=== PATIENT | male | born 1935 | race Caucasian/White ===

== ENCOUNTER → 2016-04-29 | Outpatient (CLI) | payer MEDICARE | LOC: MW.CHRC 07:37 | PROVIDERS: ATTEND Family Medicine | DX: I10 Essential (primary) hypertension (principal); E78.2 Mixed hyperlipidemia; E11.9 Type 2 diabetes mellitus without complications | CPT/HCPCS: 36415; 80053; 80061; 82044; 83036; 84443; 99215 ==

== ENCOUNTER → 2016-05-05 | Outpatient (CLI) | payer MEDICARE | LOC: MW.CHGS 08:00 | PROVIDERS: ATTEND Surgery | DX: D12.6 Benign neoplasm of colon, unspecified (principal); Z86.010 Personal history of colon polyps; K57.90 Diverticulosis of intestine, part unspecified, without perforation or abscess without bleeding; E11.9 Type 2 diabetes mellitus without complications | CPT/HCPCS: 99204 ==

== ENCOUNTER 2016-06-03 09:37 | Day surgery (SDC) | payer MEDICARE ==
[~2016-06-03 09:37] MED LIST: Lactated Ringers 1,000 ML IV SCH; Lidocaine 2% 5 ML SDV ONE; Propofol 200 MG/20 ML SDV ONE; Rocuronium 10 MG/ML 10 ML Syringe ONE; Succinylcholine/Normal Saline 200 MG/10 ML Syringe ONE; fentaNYL 100 MCG/2 ML SDV ONE
--- NOTE | 2016-06-03 10:08 | PCM.PREANE ---
Preanesthetic Assessment - Anesthesia/Transfusion/Family Hx Anesthesia History: Prior Anesthesia Without Reaction Family History of Anesthesia Reaction: No Transfusion History: No Prior Transfusion(s) - Review of Systems General: No Symptoms Pulmonary: No Symptoms Cardiovascular: No Symptoms Gastrointestinal: No symptoms Neurological: No Symptoms Other: Reports: None - Physical Assessment NPO Status Date: 06/02/16 O2 Sat by Pulse Oximetry: 97 Respiratory Rate: 14 Vital Signs: Last Vital Signs Temp 36.4 C 06/03/16 09:56 Pulse 81 06/03/16 09:56 Resp 14 06/03/16 09:56 BP 155/84 H 06/03/16 09:56 Pulse Ox 97 06/03/16 09:56 Height: 1.68 m Weight: 110.223 kg ASA Class: 3 Mental Status: Alert & Oriented x3 Airway Class: Mallampati = 2 Dentition: Reports: Dentures ROM/Head Extension: Full Lungs: Clear to auscultation, Normal respiratory effort Cardiovascular: Regular Rate, Regular Rhythm - Allergies Allergies/Adverse Reactions: Allergies Allergy/AdvReac Type Severity Reaction Status Date / Time No Known Allergies Allergy Verified 06/01/16 13:32 - Acknowledgements Anesthesia Type Planned: MAC Pt an Appropriate Candidate for the Planned Anesthesia: Yes Alternatives and Risks of Anesthesia Discussed w Pt/Guardian: Yes Pt/Guardian Understands and Agrees with Anesthesia Plan: Yes Additional Comments: DM 1.5 (am sugar 190), htn hld, rani,BMI39. PreAnesthesia Questionnaire Other HEENT History: wears glasses Cardiovascular History: Reports: High cholesterol Respiratory History: Reports: Asthma, Sleep apnea Other Respiratory History: uses a CPAP Gastrointestinal History: Reports: Colon polyp Genitourinary History: Reports: None Musculoskeletal History: Reports: None Neurological History: Reports: None Psychiatric History: Reports: None Endocrine/Metabolic History: Reports: Diabetes, type II, Hypothyroidism, Obesity /BMI 30+ Hematologic History: Reports: None Immunologic History: Reports: None Oncologic (Cancer) History: Reports: None Dermatologic History: Reports: None - Past Surgical History Head Surgeries/Procedures: Reports: None HEENT Surgical History: Reports: None Cardiovascular Surgical History: Reports: None Respiratory Surgical History: Reports: None GI Surgical History: Reports: Colonoscopy Male Surgical History: Reports: Circumcision, TURP-Transurethral resection of prostate Endocrine Surgical History: Reports: None Neurological Surgical History: Reports: Laminectomy Musculoskeletal Surgical History: Reports: None Oncologic Surgical History: Reports: None Dermatological Surgical History: Reports: None - SUBSTANCE USE Smoking Status *Q: Former Smoker Days Per Week of Alcohol Use: 3 Number of Drinks Per Day: 2 Total Drinks Per Week: 6 Recreational Drug Use History: No - HOME MEDS Home Medications: Home Meds Aspirin 81 mg PO DAILY 08/28/15 [History] Colesevelam [Welchol] 3 tab PO BID 08/28/15 [History] Finasteride 5 mg PO DAILY 08/28/15 [History] Gemfibrozil [Gemfibrozil] 600 mg PO BIDMEALS 08/28/15 [History] Insulin Glarg,Human.Rec.Analog [LantUS Solostar] 68 unit SQ BEDTIME 08/28/15 [ History] Insulin Lispro [HumaLOG] See Protocol SQ TID MDD 100 units 08/28/15 [History] Levothyroxine Sodium [Levothyroxine Sodium] 50 mcg PO DAILY 08/28/15 [History] Meloxicam [Meloxicam] 15 mg PO DAILY 08/28/15 [History] Ramipril [Ramipril] 5 mg PO DAILY 08/28/15 [History] atorvaSTATin Calcium [Atorvastatin Calcium] 40 mg PO DAILY 08/28/15 [History] sitaGLIPtin Phos/Metformin HCl [Janumet 50-1,000 MG] 1 each PO BID 08/28/15 [ History] Albuterol Sulfate [Proair Hfa] 2 puff INH Q4H PRN 06/01/16 [History] Fluticasone/Salmeterol [Advair Diskus 100-50] 1 puff INH BID 06/01/16 [History] - CURRENT (IN HOUSE) MEDS Current Meds: Current Medications Lactated Ringer's (Ringers, Lactated) 1,000 mls @ 125 mls/hr IV ASDIRECTED JUANI Discontinued Medications Fentanyl (Sublimaze) Confirm Administered Dose 100 mcg .ROUTE .STK-MED ONE Stop: 06/03/16 07:39 Lidocaine (Xylocaine-Mpf 2%) Confirm Administered Dose 5 ml .ROUTE .STK-MED ONE Stop: 06/03/16 07:39 Propofol (Diprivan 20 Ml) Confirm Administered Dose 400 mg .ROUTE .STK-MED ONE Stop: 06/03/16 07:39 Rocuronium [place] (Zemuron) Confirm Administered Dose 100 mg .ROUTE .STK-MED ONE Stop: 06/03/16 07:56 Succinylcholine Chloride (Succinylcholine In Ns Pf) Confirm Administered Dose 200 mg .ROUTE .STK-MED ONE Stop: 06/03/16 07:56
[2016-06-03] MEDS ORDERED: Phenylephrine/Normal Saline 100 MCG/ML 10 ML Syringe ONE (10:59)
--- NOTE | 2016-06-03 11:20 | PCM.OPNOTE ---
- General Post-Op/Procedure Note Operative Procedure(s): Colonoscopy with cold ascending colon polypectomy Pre Op Diagnosis: Personal history of colon polyps. Post-Op Diagnosis: Ascending colon polyp. Sigmoid diverticulosis. Anesthesia Technique: MAC (ASA III) Primary Surgeon: Chapo Payne Condition: Good Free Text/Narrative:: Dictation [id number]
[2016-06-03] MEDS ORDERED: Lactated Ringers 1,000 ML IV SCH (11:30)
--- NOTE | 2016-06-03 11:44 | PCM48HPAN ---
Post Anesthesia Note - EVALUATION WITHIN 48HRS OF ANESTHETIC Vital Signs in Normal Range: Yes Patient Participated in Evaluation: Yes Respiratory Function Stable: Yes Airway Patent: Yes Cardiovascular Function Stable: Yes Hydration Status Stable: Yes Pain Control Satisfactory: Yes Nausea and Vomiting Control Satisfactory: Yes Mental Status Recovered: Yes
--- NOTE | 2016-06-03 11:44 | PCM.POSTAN ---
POST ANESTHESIA ASSESSMENT - MENTAL STATUS Mental Status: alert, oriented - RESPIRATORY Respiratory Status: respiratory rate WNL, airway patent - CARDIOVASCULAR CV Status: pulse rate WNL, blood pressure stable - GASTROINTESTINAL GI Status: no symptoms - POST OP HYDRATION Hydration Status: adequate & stable
[2016-06-03 15:11] VITALS: BP 127/67
--- NOTE | 2016-06-03 17:16 | OR ---
SURGEON: Chapo Payne M.D. DATE OF PROCEDURE: 06/03/2016 OPERATION PERFORMED: Colonoscopy with cold ascending colon polypectomy. ANESTHESIA: MAC. ASA CLASSIFICATION: III. PREOPERATIVE DIAGNOSIS: Personal history of colon polyps. POSTOPERATIVE DIAGNOSES: 1. Ascending colon polyp. 2. Sigmoid diverticulosis. DESCRIPTION OF PROCEDURE: The patient was taken to the endoscopy room, positioned on the endoscopy table in the left lateral decubitus position. Time-out was called for appropriate identification of the patient and procedure. Monitored anesthesia care was provided. The colonoscope was inserted into the rectum and advanced without difficulty to the cecum where the colonoscope was retroflexed to visualize the ascending colon from below. The colonoscope was then straightened and slowly withdrawn. One polyp was encountered in the proximal ascending colon and removed with multiple bites of the cold biopsy forceps. The remainder of the ascending colon, hepatic flexure, transverse colon, splenic flexure, and descending colon showed no tumors, polyps, diverticula, or angiodysplastic changes. Sigmoid colon demonstrates numerous diverticula. No stricture, spasm, or bleeding was noted. No polyps were encountered in the sigmoid colon. The colonoscope was withdrawn to the rectum and retroflexed to visualize the anal orifice from above. Again, no tumors or polyps were seen and there were no acute hemorrhoidal changes. The colonoscope was then straightened, the rectum aspirated, and colonoscope removed. The patient tolerated the procedure well and was taken to recovery room in stable condition. JOYCELYN TANG /[id number]
== END 2016-06-03 12:21 | disposition home or self-care (01) ==
LOC: MW.SDS 09:37
PROVIDERS: ATTEND Surgery
PROC: 0DBK8ZZ Excision of Ascending Colon, Via Natural or Artificial Opening Endoscopic (ICD-10-PCS; principal; 2016-06-03)
DX: D12.2 Benign neoplasm of ascending colon (principal); K57.30 Diverticulosis of large intestine without perforation or abscess without bleeding; E03.9 Hypothyroidism, unspecified; J45.909 Unspecified asthma, uncomplicated; I10 Essential (primary) hypertension; E11.65 Type 2 diabetes mellitus with hyperglycemia; E11.21 Type 2 diabetes mellitus with diabetic nephropathy; E78.2 Mixed hyperlipidemia; N40.1 Benign prostatic hyperplasia with lower urinary tract symptoms; E66.9 Obesity, unspecified; Z86.010 Personal history of colon polyps; Z87.891 Personal history of nicotine dependence; Z79.4 Long term (current) use of insulin; Z79.84 Long term (current) use of oral hypoglycemic drugs; Z79.82 Long term (current) use of aspirin; Z79.899 Other long term (current) drug therapy; Z98.890 Other specified postprocedural states; Z68.39 Body mass index [BMI] 39.0-39.9, adult
CPT/HCPCS: 45380; 88305; J3010; J7120; 00810; J2704

== ENCOUNTER → 2016-06-10 | Outpatient (CLI) | payer MEDICARE | LOC: MW.CHGS 08:00 | PROVIDERS: ATTEND Surgery | DX: D12.6 Benign neoplasm of colon, unspecified (principal); K57.90 Diverticulosis of intestine, part unspecified, without perforation or abscess without bleeding; E11.9 Type 2 diabetes mellitus without complications; Z79.4 Long term (current) use of insulin | CPT/HCPCS: G0463 ==

== ENCOUNTER 2017-01-16 16:22 | Emergency (ER) | payer MEDICARE ==
[2017-01-16] MEDS ORDERED: Sodium Chloride 0.9% 2.5 ML Syringe FLUSH PRN (16:50)
[2017-01-16] MEDS ORDERED: Sodium Chloride 0.9% 10 ML Syringe FLUSH PRN (16:50)
--- NOTE | 2017-01-16 17:33 | EDM.PDOC ---
ED HPI GENERAL MEDICAL PROBLEM - General Chief Complaint: General Stated Complaint: FELL DOWN Time Seen by Provider: 01/16/17 16:41 Source of Information: Reports: Patient, EMS, Family History Limitations: Reports: No Limitations - History of Present Illness INITIAL COMMENTS - FREE TEXT/NARRATIVE: HISTORY AND PHYSICAL: 81-year-old male presenting with fall. He is brought by EMS. History of Present Illness: []Patient was taking out the trash fell striking his face on the sidewalk Denies any loss of consciousness Complains of right wrist pain Complains of right abdominal pain Family is here at bedside Review of Systems: As per history of present illness and below otherwise all systems reviewed and negative. Past medical history: As per history of present illness and as reviewed below otherwise noncontributory. Surgical history: As per history of present illness and as reviewed below otherwise noncontributory. Social history: No reported history of drug or alcohol abuse. Family history: As per history of present illness and as reviewed below otherwise noncontributory. Physical exam: Alert and oriented, answering questions appropriately without any shortness of breath using full sentences HEENT: Abrasions noted to nose, forehead, ecchymosis to right eye with edema, normocehpalic, pupils reactive, negative for conjunctival pallor or scleral icterus, mucous membranes moist, throat clear, neck supple, nontender, trachea midline. Lungs: Clear to auscultation, breath sounds equal bilaterally, chest non tender. Heart: S1S2, regular, negative for clicks, rubs, or JVD. EKG with sinus rhythm at 88bpm. Abdomen: Soft, nondistended, tender to right upper abd. Eccymosis to left lateral abdomen. Negative for masses or hepatossplenmegaly. Negative for costovertebral tenderness. Pelvis: Stable nontender. Genitourinary: Deferred. Rectal: Deferred Extremities: Atraumatic, negative for cords or calf pain. Pedal pulses palpable , full range of motion Neurovascular unremarkable. Neuro: Awake, alert, oriented. Cranial nerves II through XII unremarkable. Cerebellum unremarkable. Motor and sensory unremarkable throughout. Exam nonfocal. Diagnostics: [Head CT Abdomen pelvis CT without X-ray right shoulder X-ray right wrist] Therapeutics: [Normal saline Zofran Morphine] Impression: [Comminuted fracture to the superior lateral aspect of the right maxillary antrum] Plan: [Discharged to home Hydrocodone/APAP Augmentin ] Definitive disposition and diagnosis as appropriate pending reevaluation and review of above. Onset: Today, Sudden Duration: Minutes: Location: Reports: Head, Face Quality: Reports: Throbbing Severity: Moderate Right Chest Pain Score (Numeric/FACES): 8 - Related Data Allergies Allergy/AdvReac Type Severity Reaction Status Date / Time No Known Allergies Allergy Verified 01/16/17 16:37 Home Meds: Home Meds Aspirin 81 mg PO DAILY 08/28/15 [History] Colesevelam [Welchol] 3 tab PO BID 08/28/15 [History] Finasteride 5 mg PO DAILY 08/28/15 [History] Gemfibrozil [Gemfibrozil] 600 mg PO BIDMEALS 08/28/15 [History] Insulin Glarg,Human.Rec.Analog [LantUS Solostar] 68 unit SQ BEDTIME 08/28/15 [ History] Insulin Lispro [HumaLOG] See Protocol SQ TID MDD 100 units 08/28/15 [History] Levothyroxine Sodium [Levothyroxine Sodium] 50 mcg PO DAILY 08/28/15 [History] Meloxicam [Meloxicam] 15 mg PO DAILY 08/28/15 [History] Ramipril [Ramipril] 5 mg PO DAILY 08/28/15 [History] atorvaSTATin Calcium [Atorvastatin Calcium] 40 mg PO DAILY 08/28/15 [History] sitaGLIPtin Phos/Metformin HCl [Janumet 50-1,000 MG] 1 each PO BID 08/28/15 [ History] Albuterol Sulfate [Proair Hfa] 2 puff INH Q4H PRN 06/01/16 [History] Fluticasone/Salmeterol [Advair Diskus 100-50] 1 puff INH BID 06/01/16 [History] Past Medical History - Past Health History Medical/Surgical History: Denies Medical/Surgical History Other HEENT History: wears glasses Cardiovascular History: Reports: High Cholesterol Respiratory History: Reports: Asthma, Sleep Apnea Other Respiratory History: uses a CPAP Gastrointestinal History: Reports: Colon Polyp Genitourinary History: Reports: None Musculoskeletal History: Reports: None Neurological History: Reports: None Psychiatric History: Reports: None Endocrine/Metabolic History: Reports: Diabetes, Type II, Hypothyroidism, Obesity /BMI 30+ Hematologic History: Reports: None Immunologic History: Reports: None Oncologic (Cancer) History: Reports: None Dermatologic History: Reports: None - Infectious Disease History Infectious Disease History: Reports: None - Past Surgical History Male Surgical History: Reports: Circumcision, TURP-Transurethral Resection of Prostate Social & Family History - Family History Family Medical History: Unobtainable - Tobacco Use Smoking Status *Q: Former Smoker - Alcohol Use Days Per Week of Alcohol Use: 3 Number of Drinks Per Day: 2 Total Drinks Per Week: 6 - Recreational Drug Use Recreational Drug Use: No Drug Use in Last 12 Months: No ED ROS GENERAL - Review of Systems Review Of Systems: ROS reveals no pertinent complaints other than HPI. ED EXAM, GENERAL - Physical Exam Exam: See Below (See dictation) Course - Vital Signs Last Recorded V/S: Last Vital Signs Temp 36.5 C 01/16/17 16:38 Pulse 95 01/16/17 16:38 Resp 20 01/16/17 16:38 BP 134/76 01/16/17 16:38 Pulse Ox 95 01/16/17 16:38 - Orders/Labs/Meds Orders: Active Orders 24 hr Category Date Time Status Cardiac Monitoring [RC] . DIRECTED Care 01/16/17 16:50 Active EKG Documentation Completion [RC] STAT Care 01/16/17 16:50 Active Oxygen Therapy, ED [RC] ASDIRECTED Care 01/16/17 16:50 Active Abdomen Pelvis wo Cont [CT] Stat Exams 01/16/17 17:15 Taken Chest 1V Frontal [CR] Stat Exams 01/16/17 17:03 Taken Head wo Cont [CT] Stat Exams 01/16/17 16:51 Taken Shoulder Comp Rt [CR] Stat Exams 01/16/17 17:02 Taken Wrist 2V Rt [CR] Stat Exams 01/16/17 17:03 Taken COMPREHENSIVE METABOLIC PN,CMP [CHEM] Stat Lab 01/16/17 18:00 Received TROPONIN I [CHEM] Stat Lab 01/16/17 18:00 Received UA W/MICROSCOPIC [URIN] Stat Lab 01/16/17 16:51 Uncollected Sodium Chloride 0.9% [Saline Flush] Med 01/16/17 16:50 Active 10 ml FLUSH ASDIRECTED PRN Sodium Chloride 0.9% [Saline Flush] Med 01/16/17 16:50 Active 2.5 ml FLUSH ASDIRECTED PRN Saline Lock Insert [OM.PC] Stat Oth 01/16/17 16:50 Ordered Medication Orders Sodium Chloride (Saline Flush) 10 ml FLUSH ASDIRECTED PRN PRN Reason: Keep Vein Open Sodium Chloride (Saline Flush) 2.5 ml FLUSH ASDIRECTED PRN PRN Reason: Keep Vein Open Labs: Laboratory Tests 01/16/17 Range/Units 18:00 WBC 11.66 H (4.0-11.0) K/uL RBC 3.43 L (4.50-5.90) M/uL Hgb 10.4 L (13.0-17.0) g/dL Hct 32.9 L (38.0-50.0) % MCV 95.9 (80.0-98.0) fL MCH 30.3 (27.0-32.0) pg MCHC 31.6 (31.0-37.0) g/dL RDW Std Deviation 52.5 (28.0-62.0) fl RDW Coeff of Claus 15 (11.0-15.0) % Plt Count 311 (150-400) K/uL MPV 10.80 (7.40-12.00) fL Neut % (Auto) 77.4 (48.0-80.0) % Lymph % (Auto) 9.8 L (16.0-40.0) % [place] % (Auto) 4.5 (0.0-15.0) % Eos % (Auto) 8.0 H (0.0-7.0) % Baso % (Auto) 0.3 (0.0-1.5) % Neut # (Auto) 9.0 H (1.4-5.7) K/uL Lymph # (Auto) 1.1 (0.6-2.4) K/uL [place] # (Auto) 0.5 (0.0-0.8) K/uL Eos # (Auto) 0.9 H (0.0-0.7) K/uL Baso # (Auto) 0.0 (0.0-0.1) K/uL Nucleated RBC % 0.0 /100WBC Nucleated RBCs # 0 K/uL Meds: Medications Generic Name Dose Route Start Last Admin Trade Name Freq PRN Reason Stop Dose Admin Sodium Chloride 10 ml 01/16/17 16:50 Saline Flush FLUSH ASDIRECTED PRN Keep Vein Open Sodium Chloride 2.5 ml 01/16/17 16:50 Saline Flush FLUSH ASDIRECTED PRN Keep Vein Open Discontinued Medications Generic Name Dose Route Start Last Admin Trade Name Freq PRN Reason Stop Dose Admin Ketorolac Tromethamine 30 mg 01/16/17 18:04 01/16/17 18:17 Toradol IVPUSH 01/16/17 18:05 30 mg ONETIME ONE Administration Departure - Departure Time of Disposition: 18:29 Disposition: Home, Self-Care 01 Condition: Good Clinical Impression: Fracture, maxillary Qualifiers: Encounter type: initial encounter Fracture type: closed Laterality: right Qualified Code(s): S02.40CA - Maxillary fracture, right side, initial encounter for closed fracture - Discharge Information Referrals: Fortunato Dominguez MD [Primary Care Provider] - Adali Lopez MD [Physician] - Forms: ED Department Discharge Additional Instructions: The following information is given to patients seen in the emergency department who are being discharged to home. This information is to outline your options for follow-up care. We provide all patients seen in our emergency department with a follow-up referral. The need for follow-up, as well as the timing and circumstances, are variable depending upon the specifics of your emergency department visit. If you don't have a primary care physician on staff, we will provide you with a referral. We always advise you to contact your personal physician following an emergency department visit to inform them of the circumstance of the visit and for follow-up with them and/or the need for any referrals to a consulting specialist. The emergency department will also refer you to a specialist when appropriate. This referral assures that you have the opportunity for followup care with a specialist. All of these measure are taken in an effort to provide you with optimal care, which includes your followup. Under all circumstances we always encourage you to contact your private physician who remains a resource for coordinating your care. When calling for followup care, please make the office aware that this follow-up is from your recent emergency room visit. If for any reason you are refused follow-up, please contact the [facility] emergency department at and asked to speak to the emergency department charge nurse. Referral to Dr. Alejandra Vaca [facility] Professional Building [address] [place] [address], [address] [place] [address] Prescription for Augmentin Action for hydrocodone/APAP Follow up with Dr. Lopez in 2-3 days - My Orders Last 24 Hours: My Active Orders 01/16/17 16:50 Cardiac Monitoring [RC] . DIRECTED EKG Documentation Completion [RC] STAT Oxygen Therapy, ED [RC] ASDIRECTED Sodium Chloride 0.9% [Saline Flush] 10 ml FLUSH ASDIRECTED PRN Sodium Chloride 0.9% [Saline Flush] 2.5 ml FLUSH ASDIRECTED PRN Saline Lock Insert [OM.PC] Stat 01/16/17 16:51 Head wo Cont [CT] Stat UA W/MICROSCOPIC [URIN] Stat 01/16/17 17:02 Shoulder Comp Rt [CR] Stat 01/16/17 17:03 Chest 1V Frontal [CR] Stat Wrist 2V Rt [CR] Stat 01/16/17 17:15 Abdomen Pelvis wo Cont [CT] Stat 01/16/17 18:00 COMPREHENSIVE METABOLIC PN,CMP [CHEM] Stat TROPONIN I [CHEM] Stat - Assessment/Plan Last 24 Hours: My Active Orders 01/16/17 16:50 Cardiac Monitoring [RC] . DIRECTED EKG Documentation Completion [RC] STAT Oxygen Therapy, ED [RC] ASDIRECTED Sodium Chloride 0.9% [Saline Flush] 10 ml FLUSH ASDIRECTED PRN Sodium Chloride 0.9% [Saline Flush] 2.5 ml FLUSH ASDIRECTED PRN Saline Lock Insert [OM.PC] Stat 01/16/17 16:51 Head wo Cont [CT] Stat UA W/MICROSCOPIC [URIN] Stat 01/16/17 17:02 Shoulder Comp Rt [CR] Stat 01/16/17 17:03 Chest 1V Frontal [CR] Stat Wrist 2V Rt [CR] Stat 01/16/17 17:15 Abdomen Pelvis wo Cont [CT] Stat 01/16/17 18:00 COMPREHENSIVE METABOLIC PN,CMP [CHEM] Stat TROPONIN I [CHEM] Stat
[2017-01-16] MEDS ORDERED: Ketorolac 30 MG/ML SDV IVPUSH ONE (18:04)
[2017-01-16 18:40] LABS: CHLORIDE,CL 107 mmol/L (98-110); SODIUM,NA 136 mmol/L (136-146)
[2017-01-16 20:25] VITALS: BP 108/81
--- NOTE | 2017-01-17 16:56 | CT ---
EXAM DATE: 01/16/17 PATIENT'S AGE: 81 Patient: MARQUES TEIXEIRA Facility: [place], [place] Site . Site : 1935 Study: CT Head [id number]/26/2017 5:20:17 PM Ordering Physician: Doctor Chanel Final Report: Indication: 81-year-old male. Fall. Technique: Noncontrast axial images of the maxillofacial structures and calvarium at 3 mm collimation. Raw data re-formatted in sagittal and coronal planes. Findings: Ventricles and cortical sulci are moderately prominent. There is minimal patchy white matter lucency in the cerebral hemispheres. The burgos-white differentiation is intact. There is no pathologic extra-axial fluid collection. A small arachnoid cyst is situated at the anterior right middle cranial fossa. Basal cisterns and falx are normal. The bony calvarium is intact. There is hemorrhage in the right maxillary sinus. There is a fracture at the floor of the right orbit with slight comminution at these superolateral wall of the right maxilla. There is minimal subperiosteal hemorrhage along the lateral margin the right maxillary antrum. As viewed, the infraorbital rim is intact. Right zygomatic arch and zygomaticofrontal suture are intact right. Periorbital preseptal soft tissue swelling is noted. Intraorbital tissues are normal Impression: 1. Hemorrhage in the right maxillary sinus with comminuted fracture situated at the superior lateral aspect the right maxillary antrum with involvement of the floor of the right orbit. As viewed the right intraorbital rim is intact. 2. Right periorbital preseptal edema. 3. No acute intracranial finding. 4. Age-related findings including atrophy and minor microvascular ischemic disease. Please note that all CT scans at this facility use dose modulation, iterative reconstruction, and/or weight-based dosing when appropriate to reduce radiation dose to as low as reasonably achievable. Dictated by Curry Tejeda MD @ Jan 16 2017 5:32PM (Electronic Signature) Report Signed by Proxy. JERRI
--- NOTE | 2017-01-17 16:57 | CT ---
EXAM DATE: 01/16/17 PATIENT'S AGE: 81 [facility] Facility: [place], [place] Site . Site : 1935 Study: CT Abdomen/Pelvis [id number]/26/2017 5:25:50 PM Ordering Physician: Doctor Chanel Final Report: INDICATION: Fall. Abdominal pain. Technique: Volumetric unenhanced CT of the abdomen and pelvis with multiplanar reconstruction. Findings: The lung bases are clear. The liver, spleen, pancreas, adrenal glands, gallbladder, and biliary tract are unremarkable. Kidneys bilaterally symmetrical. No hydronephrosis. Multiple simple cysts arise from the left kidney. No urinary tract stones. Ureters normal in course and caliber. Abdominal aorta normal in caliber and displays changes of atherosclerosis. No para-aortic or retrocrural lymphadenopathy. Normal caliber bowel gas pattern. No inflammatory changes involving the bowel. No bowel wall hematoma. Diverticulosis without diverticulitis. The urinary bladder has a smooth contour. No free fluid in the abdomen and pelvis. No acute bony abnormalities. Impression: 1. No acute pathology in the abdomen and pelvis. 2. Multiple simple cyst arising from the left kidney. 3. Diverticulosis without diverticulitis. Please note that all CT scans at this facility use dose modulation, iterative reconstruction, and/or weight-based dosing when appropriate to reduce radiation dose to as low as reasonably achievable. Dictated by Austin Rod MD @ Jan 16 2017 5:58PM (Electronic Signature) Report Signed by Proxy. [facility] CENT[facility]lizabeth
--- NOTE | 2017-01-17 16:58 | CR ---
EXAM DATE: 01/16/17 PATIENT'S AGE: 81 Patient: MARQUES TEIXEIRA Facility: [place], [place] Site . Site : 1935 Study: XRay Extremity Right wrist [id number]/26/2017 5:48:02 PM Ordering Physician: Doctor Chanel Final Report: INDICATION: Fall. Technique: Two views of the right wrist. Findings: No acute fracture or dislocation. Schapholunate distance at the upper limit of normal. Dorsal soft tissue swelling. Impression: 1. No acute fracture. 2. Dorsal soft tissue swelling. 3. Scapholunate distance at the upper limit of normal. Dictated by Austin Rod MD @ Jan 16 2017 5:55PM (Electronic Signature) Report Signed by Proxy. JERRI
--- NOTE | 2017-01-17 16:59 | CR ---
EXAM DATE: 01/16/17 PATIENT'S AGE: 81 Patient: MARQUES TEIXEIRA Facility: [place], [place] Site . Site : 1935 Study: XRay Shoulder Right [id number]/26/2017 5:48:28 PM Ordering Physician: Doctor Chanel Final Report: INDICATION: Fall. Technique: Two views of the right shoulder. Findings: No acute fracture or dislocation. Position of the humeral head raises concern for rotator cuff pathology. Degenerative change in the acromioclavicular joint. No soft tissue calcifications. Impression: 1. Degenerative changes of the right shoulder. 2. No acute fracture or dislocation. Dictated by Austin Rod MD @ Jan 16 2017 5:56PM (Electronic Signature) Report Signed by Proxy. JERRI
--- NOTE | 2017-01-17 17:00 | CR ---
EXAM DATE: 01/16/17 PATIENT'S AGE: 81 [facility] Facility: [place], [place] Site . Site : 1935 Study: XRay Chest [id number]/26/2017 5:48:49 PM Ordering Physician: Doctor Chanel Final Report: INDICATION: Fall. Technique: Portable chest. Findings: Heart at the upper limit of normal in transverse diameter. Mediastinum and pulmonary vessels are normal. Lungs are clear. No pleural fluid. No acute bony abnormality. Impression: No acute chest disease. Dictated by Austin Rod MD @ Jan 16 2017 5:57PM (Electronic Signature) Report Signed by Proxy. JERRI
== END 2017-01-16 18:59 | disposition home or self-care (01) ==
LOC: MW.ED 16:22
DX: S02.40CA Maxillary fracture, right side, initial encounter for closed fracture (principal); E10.9 Type 1 diabetes mellitus without complications; Z79.82 Long term (current) use of aspirin; Z79.4 Long term (current) use of insulin; Z79.899 Other long term (current) drug therapy; Z87.891 Personal history of nicotine dependence; W01.10XA Fall on same level from slipping, tripping and stumbling with subsequent striking against unspecified object, initial encounter
CPT/HCPCS: 36415; 70450; 71010; 73030; 73100; 74176; 80053; 84484; 85025; 93005; 96374; 99285; J1885

== ENCOUNTER 2019-12-04 17:32 | Inpatient (IN) | payer MEDICARE ==
[2019-12-04] MEDS ORDERED: FLU Vacc QV2020-21(65YR UP)/PF 240 MCG/0.7 ML Syringe IM ONE (18:00)
[2019-12-04] MEDS ORDERED: Pantoprazole 40 MG in Sodium Chloride 0.9% 10 ML IV SCH (18:15)
[2019-12-04] MEDS: Pantoprazole 40 MG in Sodium Chloride 0.9% 10 ML IV SCH (18:52)
[2019-12-04] MEDS ORDERED: Glucagon,Human Recombinant 1 MG Vial IM PRN (21:17)
[2019-12-04] MEDS ORDERED: 50% Dextrose in Water 50 ML Syringe IV PRN (21:17)
--- NOTE | 2019-12-04 21:39 | PCM.HP.2 ---
H&P History of Present Illness - General Date of Service: 12/04/19 Admit Problem/Dx: Admission Diagnosis/Problem Admission Diagnosis/Problem Anemia - History of Present Illness Initial Comments - Free Text/Narative: 84 yo male with pmh of hypothyroidism, DM, asthma and TANIA who presents to the respiratory clinic with complaints of shortness of breath for past week. Patient reports dark diarrhea on and off for past two months. He did have epigastric pain yesterday which he blamed on something he ate. Patient takes meloxicam for arthritis. He had a screening colonoscopy three years ago for polyps and diverticulosis. In the ED he was noted to have a Hgb of 6. - Related Data Allergies/Adverse Reactions: Allergies Allergy/AdvReac Type Severity Reaction Status Date / Time No Known Allergies Allergy Verified 12/05/19 08:57 Home Medications: Home Meds Finasteride 5 mg PO DAILY 08/28/15 [History] Gemfibrozil 600 mg PO BIDMEALS 08/28/15 [History] Insulin Glarg,Human.Rec.Analog [LantUS Solostar] 68 unit SQ BEDTIME 08/28/15 [H istory] Insulin Lispro [HumaLOG] See Protocol SQ TID MDD 100 units 08/28/15 [History] Levothyroxine Sodium 50 mcg PO DAILY 08/28/15 [History] Meloxicam 15 mg PO DAILY 08/28/15 [History] Ramipril 10 mg PO DAILY 08/28/15 [History] atorvaSTATin Calcium [Atorvastatin Calcium] 40 mg PO DAILY 08/28/15 [History] sitaGLIPtin Phos/Metformin HCl [Janumet 50-1,000 MG] 1 each PO BID 08/28/15 [History] Albuterol Sulfate [Proair Hfa] 2 puff INH Q4HR PRN 12/04/19 [History] Colesevelam [Welchol] 3 tab PO BID 12/04/19 [History] Fluticasone/Salmeterol [Advair 100-50] 1 puff INH BID 12/04/19 [History] cilostazoL [Cilostazol] 1 tab PO BIDMEALS 12/04/19 [History] Past Medical History - Past Health History Medical/Surgical History: Denies Medical/Surgical History HEENT History: Reports: Hard of Hearing Other HEENT History: wears glasses Cardiovascular History: Reports: High Cholesterol Respiratory History: Reports: COPD, Sleep Apnea Other Respiratory History: uses a CPAP Gastrointestinal History: Reports: Colon Polyp Genitourinary History: Reports: BPH Musculoskeletal History: Reports: None Neurological History: Reports: None Psychiatric History: Reports: None Endocrine/Metabolic History: Reports: Diabetes, Type II, Hypothyroidism, Obesity/BMI 30+ Hematologic History: Reports: None Immunologic History: Reports: None Oncologic (Cancer) History: Reports: None Dermatologic History: Reports: None - Infectious Disease History Infectious Disease History: Reports: Chicken Pox, Measles - Past Surgical History Head Surgeries/Procedures: Reports: None HEENT Surgical History: Reports: None Cardiovascular Surgical History: Reports: None Respiratory Surgical History: Reports: None GI Surgical History: Reports: None Male Surgical History: Reports: Circumcision, TURP-Transurethral Resection of Prostate Endocrine Surgical History: Reports: None Social & Family History - Family History Family Medical History: Noncontributory - Tobacco Use Tobacco Use Status *Q: Former Tobacco User Used Tobacco, but Quit: Yes Month/Year Tobacco Last Used: 13 yrs agp Second Hand Smoke Exposure: No - Caffeine Use Caffeine Use: Reports: None - Alcohol Use Days Per Week of Alcohol Use: 2 Number of Drinks Per Day: 2 Total Drinks Per Week: 4 - Recreational Drug Use Recreational Drug Use: No H&P Review of Systems - Review of Systems: Review Of Systems: Comprehensive ROS is negative, except as noted in HPI. Exam - Exam Exam: See Below - Vital Signs Vital Signs: Last Vital Signs Temp 36.2 C 12/04/19 20:26 Pulse 91 12/04/19 20:26 Resp 18 12/04/19 20:26 BP 167/80 H 12/04/19 20:26 Pulse Ox 97 12/04/19 20:26 Weight: 108.409 kg - Exam General: Alert, Oriented HEENT: Mucosa Moist & [place] Neck: Supple Lungs: Clear to Auscultation, Normal Respiratory Effort Cardiovascular: Regular Rate, Regular Rhythm GI/Abdominal Exam: Normal Bowel Sounds, Soft, Non-Tender Rectal (Males) Exam: Normal Exam, Normal Rectal Tone, Prostate Normal, Other (loose brown stool). No: Hemorrhoids, Rectal Fissure Extremities: Non-Tender, No Pedal Edema Skin: Warm, Dry, Intact Neurological: Cranial Nerves Intact. No: Focal Deficit - Patient Data Lab Results Last 24 hrs: Laboratory Results - last 24 hr 12/04/19 12/04/19 Range/Units 17:05 18:28 POC Glucose 85 (60-110) mg/dL Blood Type O POSITIVE Antibody Screen NEGATIVE Crossmatch See Detail Result Diagrams: 12/05/19 03:34 12/05/19 03:34 Sridhar Results Last 24 hrs: Microbiology 12/04/19 20:50 Stool Occult Blood (SRIDHAR) - Final Stool / Feces Sepsis Event Note - Evaluation Sepsis Screening Result: No Definite Risk - Focused Exam Vital Signs: Vital Signs Temp Temp Pulse Resp BP Pulse Ox 12/04/19 20:26 36.2 C 91 18 167/80 H 97 12/04/19 20:11 36.6 C 90 18 169/76 H 97 12/04/19 18:02 36.4 C 104 H 20 182/72 H 97 Problem List Initiated/Reviewed/Updated: Yes Orders Last 24hrs: Active Orders 24 hr Category Date Time Status Admission Status [Patient Status] [ADT] Routine ADT 12/04/19 21:12 Active Blood Glucose Check, Bedside [RC] Q6H Care 12/04/19 18:33 Active Hemoccult [Fecal Occult Blood Collection] [RC] Care 12/04/19 21:10 Active ASDIRECTED Influenza Vaccine Charge [RC] .DISCHARGE Care 12/04/19 17:56 Active RT Post Treatment Assessment [RC] Click to Edit Care 12/04/19 21:18 Active RT Pre-Treatment Assessment [RC] Click to Edit Care 12/04/19 21:18 Active Up ad Dolly [RC] ASDIRECTED Care 12/04/19 18:03 Active Vital Signs [RC] Q4H Care 12/04/19 18:03 Active Nothing Per Oral Diet [DIET] Diet 12/05/19 Breakfast Active RED BLOOD CELLS LP [BBK] Stat Lab 12/04/19 17:05 Results TYPE AND SCREEN [BBK] Stat Lab 12/04/19 17:05 Results Dextrose 50% in Water Med 12/04/19 21:17 Ordered 50 ml IV ASDIRECTED PRN Fluticasone/Salmeterol [Advair Diskus 100-50] Med 12/05/19 09:00 Ordered 1 puff INH BID Glucagon,Human Recombinant [GlucaGen] Med 12/04/19 21:17 Ordered 1 mg IM ASDIRECTED PRN Insulin Glarg,Human.Rec.Analog [LantUS Solostar] Med 12/04/19 21:00 Ordered 34 units SUBCUT BEDTIME Levothyroxine [Synthroid] Med 12/05/19 09:00 Ordered 50 mcg PO DAILY Pantoprazole [ProTONIX IV] 40 mg Med 12/04/19 18:30 Active Sodium Chloride 0.9% [Normal Saline] 10 ml IV Q12H Transfuse RBC [Transfuse Red Blood Cells] [COMM] Oth 12/04/19 18:34 Ordered Routine Medication Orders Dextrose/Water (Dextrose 50% In Water) 50 ml IV ASDIRECTED PRN PRN Reason: Hypoglycemia Glucagon (Glucagen) 1 mg IM ASDIRECTED PRN PRN Reason: Hypoglycemia Pantoprazole Sodium 40 mg/ (Sodium Chloride) 10 mls @ 300 mls/hr IV Q12H [facility] Last Admin: 12/04/19 18:52 Dose: 300 mls/hr Documented by: HANNA Insulin Glargine (Lantus Solostar) 34 units SUBCUT BEDTIME [facility] Levothyroxine Sodium (Synthroid) 50 mcg PO DAILY@0700 [facility] Fluticasone/Salmeterol (Advair Diskus 100-50) 1 puff INH BID [facility] Assessment/Plan Comment:: 84 yo male admitted for symptomatic anemia likely from an chronic GI bleed. We will transfuse two units pRBC. Will treat with protonix IV. Will trend Hgb.
[2019-12-04] MEDS: Insulin Glargine,Human Rec. Analog 100 Units/ML 3 ML Pen SUBCUT SCH (21:41)
[2019-12-05 03:59] LABS: BLOOD UREA NITROGEN,BUN 19 mg/dL (7.0-18.0); CARBON DIOXIDE,CO2 22.6 mmol/L (21.0-32.0); CHLORIDE,CL 109 mmol/L (98-107); GLUCOSE RANDOM 66 mg/dL (74-106); POTASSIUM,K 4.9 mmol/L (3.5-5.1); SODIUM,NA 139 mmol/L (136-148)
[2019-12-05] MEDS: Pantoprazole 40 MG in Sodium Chloride 0.9% 10 ML IV SCH ×2 (06:08→18:38)
[2019-12-05] MEDS: Levothyroxine 50 MCG Tab PO SCH (07:04)
[2019-12-05] MEDS: Fluticasone/Salmeterol 100-50 MCG Inhalation Powder 14/Diskus INH SCH ×2 (09:42→20:43)
[2019-12-05] MEDS ORDERED: Albuterol HFA 18 Gm Inhaler INH PRN (09:42)
--- NOTE | 2019-12-05 09:44 | PCM.PN ---
- General Info Date of Service: 12/05/19 - Review of Systems Systems Review Comment:: shortness of breath has improved, no blood in stool - Patient Data Vitals - Most Recent: Last Vital Signs Temp 36.3 C 12/05/19 08:09 Pulse 78 12/05/19 08:09 Resp 18 12/05/19 08:09 BP 151/72 H 12/05/19 08:09 Pulse Ox 97 12/05/19 08:09 Weight - Most Recent: 108.409 kg I&O - Last 24 Hours: Intake & Output 12/04/19 12/05/19 12/05/19 22:59 06:59 14:59 Intake Total 350 350 Output Total 30 Balance 350 320 Lab Results Last 24 Hours: Laboratory Results - last 24 hr 12/04/19 12/04/19 12/04/19 Range/Units 17:05 18:28 21:36 WBC (4.0-11.0) K/uL RBC (4.50-5.90) M/uL Hgb (13.0-17.0) g/dL Hct (38.0-50.0) % MCV (80.0-98.0) fL MCH (27.0-32.0) pg MCHC (31.0-37.0) g/dL RDW Std Deviation (28.0-62.0) fl RDW Coeff of Claus (11.0-15.0) % Plt Count (150-400) K/uL MPV (7.40-12.00) fL Neut % (Auto) (48.0-80.0) % Lymph % (Auto) (16.0-40.0) % [place] % (Auto) (0.0-15.0) % Eos % (Auto) (0.0-7.0) % Baso % (Auto) (0.0-1.5) % Neut # (Auto) (1.4-5.7) K/uL Lymph # (Auto) (0.6-2.4) K/uL [place] # (Auto) (0.0-0.8) K/uL Eos # (Auto) (0.0-0.7) K/uL Baso # (Auto) (0.0-0.1) K/uL Nucleated RBC % /100WBC Nucleated RBCs # K/uL Sodium (136-148) mmol/L Potassium (3.5-5.1) mmol/L Chloride (98-107) mmol/L Carbon Dioxide (21.0-32.0) mmol/L BUN (7.0-18.0) mg/dL Creatinine (0.8-1.3) mg/dL Est Cr Clr Drug Dosing mL/min Estimated GFR (MDRD) ml/min Glucose (74-106) mg/dL POC Glucose 85 91 (60-110) mg/dL Calcium (8.5-10.1) mg/dL Blood Type O POSITIVE Antibody Screen NEGATIVE Crossmatch See Detail 12/04/19 12/05/19 12/05/19 Range/Units 23:51 03:34 03:34 WBC 6.86 (4.0-11.0) K/uL RBC 3.16 L (4.50-5.90) M/uL Hgb 7.2 L (13.0-17.0) g/dL Hct 25.1 L (38.0-50.0) % MCV 79.4 L (80.0-98.0) fL MCH 22.8 L (27.0-32.0) pg MCHC 28.7 L (31.0-37.0) g/dL RDW Std Deviation 50.9 (28.0-62.0) fl RDW Coeff of Claus 18 H (11.0-15.0) % Plt Count 417 H (150-400) K/uL MPV 8.80 (7.40-12.00) fL Neut % (Auto) 65.1 (48.0-80.0) % Lymph % (Auto) 19.2 (16.0-40.0) % [place] % (Auto) 9.3 (0.0-15.0) % Eos % (Auto) 6.1 (0.0-7.0) % Baso % (Auto) 0.3 (0.0-1.5) % Neut # (Auto) 4.5 (1.4-5.7) K/uL Lymph # (Auto) 1.3 (0.6-2.4) K/uL [place] # (Auto) 0.6 (0.0-0.8) K/uL Eos # (Auto) 0.4 (0.0-0.7) K/uL Baso # (Auto) 0.0 (0.0-0.1) K/uL Nucleated RBC % 0.0 /100WBC Nucleated RBCs # 0 K/uL Sodium 139 (136-148) mmol/L Potassium 4.9 (3.5-5.1) mmol/L Chloride 109 H (98-107) mmol/L Carbon Dioxide 22.6 (21.0-32.0) mmol/L BUN 19 H (7.0-18.0) mg/dL Creatinine 1.0 (0.8-1.3) mg/dL Est Cr Clr Drug Dosing 50.51 mL/min Estimated GFR (MDRD) > 60.0 ml/min Glucose 66 L (74-106) mg/dL POC Glucose 86 (60-110) mg/dL Calcium 9.1 (8.5-10.1) mg/dL Blood Type Antibody Screen Crossmatch 12/05/19 Range/Units 06:12 WBC (4.0-11.0) K/uL RBC (4.50-5.90) M/uL Hgb (13.0-17.0) g/dL Hct (38.0-50.0) % MCV (80.0-98.0) fL MCH (27.0-32.0) pg MCHC (31.0-37.0) g/dL RDW Std Deviation (28.0-62.0) fl RDW Coeff of Claus (11.0-15.0) % Plt Count (150-400) K/uL MPV (7.40-12.00) fL Neut % (Auto) (48.0-80.0) % Lymph % (Auto) (16.0-40.0) % [place] % (Auto) (0.0-15.0) % Eos % (Auto) (0.0-7.0) % Baso % (Auto) (0.0-1.5) % Neut # (Auto) (1.4-5.7) K/uL Lymph # (Auto) (0.6-2.4) K/uL [place] # (Auto) (0.0-0.8) K/uL Eos # (Auto) (0.0-0.7) K/uL Baso # (Auto) (0.0-0.1) K/uL Nucleated RBC % /100WBC Nucleated RBCs # K/uL Sodium (136-148) mmol/L Potassium (3.5-5.1) mmol/L Chloride (98-107) mmol/L Carbon Dioxide (21.0-32.0) mmol/L BUN (7.0-18.0) mg/dL Creatinine (0.8-1.3) mg/dL Est Cr Clr Drug Dosing mL/min Estimated GFR (MDRD) ml/min Glucose (74-106) mg/dL POC Glucose 77 (60-110) mg/dL Calcium (8.5-10.1) mg/dL Blood Type Antibody Screen Crossmatch Sridhar Results Last 24 Hours: Microbiology 12/04/19 20:50 Stool Occult Blood (SRIDHAR) - Final Stool / Feces Med Orders - Current: Current Medications Dextrose/Water (Dextrose 50% In Water) 50 ml IV ASDIRECTED PRN PRN Reason: Hypoglycemia Glucagon (Glucagen) 1 mg IM ASDIRECTED PRN PRN Reason: Hypoglycemia Pantoprazole Sodium 40 mg/ (Sodium Chloride) 10 mls @ 300 mls/hr IV Q12H [facility] Last Admin: 12/05/19 06:08 Dose: 300 mls/hr Documented by: Insulin Glargine (Lantus Solostar) 34 units SUBCUT BEDTIME [facility] Last Admin: 12/04/19 21:41 Dose: 34 units Documented by: Levothyroxine Sodium (Synthroid) 50 mcg PO DAILY@0700 [facility] Last Admin: 12/05/19 07:04 Dose: 50 mcg Documented by: Fluticasone/Salmeterol (Advair Diskus 100-50) 1 puff INH BID [facility] Discontinued Medications Pantoprazole Sodium 40 mg/ (Sodium Chloride) 10 mls @ 300 mls/hr IV BID [facility] Influenza Virus Vaccine (Pharmacy To Dose - Influenza Vaccine) 1 each IM ONETIME ONE Stop: 12/04/19 17:57 Last Admin: 12/04/19 19:50 Dose: Not Given Documented by: Influenza Virus Vaccine (Fluzone High-Dose Quad 2019-) 240 mcg IM .ONCE ONE Stop: 12/04/19 18:01 - Exam General: Alert, Oriented Neck: Supple Lungs: Clear to Auscultation, Normal Respiratory Effort Cardiovascular: Regular Rate, Regular Rhythm GI/Abdominal Exam: Normal Bowel Sounds, Soft, Non-Tender Extremities: Non-Tender, No Pedal Edema Skin: Warm, Dry, Intact Neurological: No New Focal Deficit Sepsis Event Note - Evaluation Sepsis Screening Result: No Definite Risk - Focused Exam Vital Signs: Vital Signs Temp Temp Pulse Resp BP Pulse Ox 12/05/19 08:09 36.3 C 78 18 151/72 H 97 12/05/19 03:30 36.4 C 81 18 148/65 H 97 12/05/19 02:30 36.3 C 80 18 155/72 H 98 12/04/19 23:32 36.4 C 86 17 161/70 H 97 12/04/19 23:17 36.2 C 87 18 150/77 H 96 12/04/19 22:55 36.2 C 79 18 147/66 H 97 - Problem List Review Problem List Initiated/Reviewed/Updated: Yes - My Orders Last 24 Hours: My Active Orders 12/04/19 17:05 RED BLOOD CELLS LP [BBK] Stat TYPE AND SCREEN [BBK] Stat 12/04/19 17:56 Influenza Vaccine Charge [RC] .DISCHARGE 12/04/19 18:03 Up ad Dolly [RC] ASDIRECTED Vital Signs [RC] Q4H 12/04/19 18:30 Pantoprazole [ProTONIX IV] 40 mg Sodium Chloride 0.9% [Normal Saline] 10 ml IV Q12H 12/04/19 18:33 Blood Glucose Check, Bedside [RC] Q6H 12/04/19 21:00 Insulin Glarg,Human.Rec.Analog [LantUS Solostar] 34 units SUBCUT BEDTIME 12/04/19 21:10 Hemoccult [Fecal Occult Blood Collection] [RC] ASDIRECTED 12/04/19 21:12 Admission Status [Patient Status] [ADT] Routine 12/04/19 21:17 Dextrose 50% in Water 50 ml IV ASDIRECTED PRN Glucagon,Human Recombinant [GlucaGen] 1 mg IM ASDIRECTED PRN 12/04/19 21:18 RT Post Treatment Assessment [RC] Click to Edit RT Pre-Treatment Assessment [RC] Click to Edit 12/04/19 21:34 Oxygen Therapy [RC] PRN VTE/DVT Education [RC] PER UNIT ROUTINE Vital Signs [RC] Q4H Sequential Compression Device [OM.PC] Per Unit Routine Resuscitation Status Routine 12/04/19 21:35 Antiembolic Devices [RC] PER UNIT ROUTINE 12/05/19 Breakfast Nothing Per Oral Diet [DIET] 12/05/19 07:00 Levothyroxine [Synthroid] 50 mcg PO DAILY@0700 12/05/19 08:52 Transfuse Red Blood Cells [COMM] Urgent 12/05/19 09:00 Fluticasone/Salmeterol [Advair Diskus 100-50] 1 puff INH BID 12/05/19 09:37 Notify Provider Consults [RC] ASDIRECTED Consult to Physician [CONS] Routine 12/05/19 09:38 Hemoccult [Fecal Occult Blood Collection] [RC] ASDIRECTED Hemoccult [OCCULT BLOOD DIAGNOSTIC] [OP] Routine 12/05/19 Lunch Clear Liquid Diet [DIET] - Plan Plan:: 84 yo male admitted for symptomatic anemia likely from a subacute to chronic GI bleed. GI bleed: on protonix, s/p 2 units of pRBC, hgb 7.2 will transfuse two more units. Holding meloxicam. General Surgery consulted regarding endoscopy. DM: will start clear liquid diet, sliding scale insulin COPD: stable, advair
[2019-12-05] MEDS ORDERED: atorvaSTATin 40 MG Tab PO SCH ×2 (09:45→21:00)
[2019-12-05] MEDS ORDERED: Bisacodyl 5 MG Tab PO ONE ×2 (13:11→21:00)
[2019-12-05] MEDS ORDERED: Polyethylene Glycol 3350 Powder 17 GM Packet PO ONE (17:00)
[2019-12-05] MEDS: Insulin Glargine,Human Rec. Analog 100 Units/ML 3 ML Pen SUBCUT SCH (21:52)
[2019-12-05] MEDS ORDERED: Insulin Glargine,Human Rec. Analog 100 Units/ML 3 ML Pen SUBCUT SCH (22:00)
[2019-12-06 06:16] LABS: BLOOD UREA NITROGEN,BUN 18 mg/dL (7.0-18.0); CHLORIDE,CL 105 mmol/L (98-107); GLUCOSE RANDOM 87 mg/dL (74-106); POTASSIUM,K 4.3 mmol/L (3.5-5.1); SODIUM,NA 138 mmol/L (136-148)
[2019-12-06] MEDS: Pantoprazole 40 MG in Sodium Chloride 0.9% 10 ML IV SCH (06:23)
[2019-12-06] MEDS: Levothyroxine 50 MCG Tab PO SCH ×2 (06:29→10:59)
--- NOTE | 2019-12-06 07:53 | PCM.PREANE ---
Preanesthetic Assessment - Anesthesia/Transfusion/Family Hx Anesthesia History: Prior Anesthesia Without Reaction Transfusion History: No Prior Transfusion(s) - Physical Assessment Vital Signs: Last Vital Signs Temp 36.2 C 12/06/19 04:32 Pulse 75 12/06/19 04:32 Resp 18 12/06/19 04:32 BP 137/76 12/06/19 04:32 Pulse Ox 96 12/06/19 04:32 Height: 5 ft 6 in Weight: 108.409 kg - Lab Values: Laboratory Last Values WBC 8.44 K/uL (4.0-11.0) 12/06/19 05:28 RBC 3.96 M/uL (4.50-5.90) L 12/06/19 05:28 Hgb 9.3 g/dL (13.0-17.0) L 12/06/19 05:28 Hct 31.5 % (38.0-50.0) L 12/06/19 05:28 MCV 79.5 fL (80.0-98.0) L 12/06/19 05:28 MCH 23.5 pg (27.0-32.0) L 12/06/19 05:28 MCHC 29.5 g/dL (31.0-37.0) L 12/06/19 05:28 RDW Std Deviation 50.9 fl (28.0-62.0) 12/06/19 05:28 RDW Coeff of Claus 17 % (11.0-15.0) H 12/06/19 05:28 Plt Count 416 K/uL (150-400) H 12/06/19 05:28 MPV 9.10 fL (7.40-12.00) 12/06/19 05:28 Neut % (Auto) 76.2 % (48.0-80.0) 12/06/19 05:28 Lymph % (Auto) 11.4 % (16.0-40.0) L 12/06/19 05:28 [place] % (Auto) 6.0 % (0.0-15.0) 12/06/19 05:28 Eos % (Auto) 6.0 % (0.0-7.0) 12/06/19 05:28 Baso % (Auto) 0.4 % (0.0-1.5) 12/06/19 05:28 Neut # (Auto) 6.4 K/uL (1.4-5.7) H 12/06/19 05:28 Lymph # (Auto) 1.0 K/uL (0.6-2.4) 12/06/19 05:28 [place] # (Auto) 0.5 K/uL (0.0-0.8) 12/06/19 05:28 Eos # (Auto) 0.5 K/uL (0.0-0.7) 12/06/19 05:28 Baso # (Auto) 0.0 K/uL (0.0-0.1) 12/06/19 05:28 Nucleated RBC % 0.0 /100WBC 12/06/19 05:28 Nucleated RBCs # 0 K/uL 12/06/19 05:28 Sodium 138 mmol/L (136-148) 12/06/19 05:28 Potassium 4.3 mmol/L (3.5-5.1) 12/06/19 05:28 Chloride 105 mmol/L (98-107) 12/06/19 05:28 Carbon Dioxide 22.0 mmol/L (21.0-32.0) 12/06/19 05:28 BUN 18 mg/dL (7.0-18.0) 12/06/19 05:28 Creatinine 1.0 mg/dL (0.8-1.3) 12/06/19 05:28 Est Cr Clr Drug Dosing 50.51 mL/min 12/06/19 05:28 Estimated GFR (MDRD) > 60.0 ml/min 12/06/19 05:28 Glucose 87 mg/dL (74-106) 12/06/19 05:28 POC Glucose 94 mg/dL (60-110) 12/06/19 04:21 Calcium 9.0 mg/dL (8.5-10.1) 12/06/19 05:28 Blood Type O POSITIVE 12/04/19 17:05 Antibody Screen NEGATIVE 12/04/19 17:05 Crossmatch See Detail 12/04/19 17:05 - Allergies Allergies/Adverse Reactions: Allergies Allergy/AdvReac Type Severity Reaction Status Date / Time No Known Allergies Allergy Verified 12/05/19 08:57 PreAnesthesia Questionnaire - Past Health History Medical/Surgical History: Denies Medical/Surgical History HEENT History: Reports: Hard of Hearing Other HEENT History: wears glasses Cardiovascular History: Reports: High Cholesterol Respiratory History: Reports: COPD, Sleep Apnea Other Respiratory History: uses a CPAP Gastrointestinal History: Reports: Colon Polyp Genitourinary History: Reports: BPH Musculoskeletal History: Reports: None Neurological History: Reports: None Psychiatric History: Reports: None Endocrine/Metabolic History: Reports: Diabetes, Type II, Hypothyroidism, Obesity/BMI 30+ Hematologic History: Reports: None Immunologic History: Reports: None Oncologic (Cancer) History: Reports: None Dermatologic History: Reports: None - Infectious Disease History Infectious Disease History: Reports: Chicken Pox, Measles - Past Surgical History Head Surgeries/Procedures: Reports: None HEENT Surgical History: Reports: None Cardiovascular Surgical History: Reports: None Respiratory Surgical History: Reports: None GI Surgical History: Reports: None Male Surgical History: Reports: Circumcision, TURP-Transurethral Resection of Prostate Endocrine Surgical History: Reports: None - SUBSTANCE USE Tobacco Use Status *Q: Former Tobacco User Second Hand Smoke Exposure: No Days Per Week of Alcohol Use: 2 Number of Drinks Per Day: 2 Total Drinks Per Week: 4 Recreational Drug Use History: No - HOME MEDS Home Medications: Home Meds Finasteride 5 mg PO DAILY 08/28/15 [History] Gemfibrozil 600 mg PO BIDMEALS 08/28/15 [History] Insulin Glarg,Human.Rec.Analog [LantUS Solostar] 68 unit SQ BEDTIME 08/28/15 [History] Insulin Lispro [HumaLOG] See Protocol SQ TID MDD 100 units 08/28/15 [History] Levothyroxine Sodium 50 mcg PO DAILY 08/28/15 [History] Meloxicam 15 mg PO DAILY 08/28/15 [History] Ramipril 10 mg PO DAILY 08/28/15 [History] atorvaSTATin Calcium [Atorvastatin Calcium] 40 mg PO DAILY 08/28/15 [History] sitaGLIPtin Phos/Metformin HCl [Janumet 50-1,000 MG] 1 each PO BID 08/28/15 [History] Albuterol Sulfate [Proair Hfa] 2 puff INH Q4HR PRN 12/04/19 [History] Colesevelam [Welchol] 3 tab PO BID 12/04/19 [History] Fluticasone/Salmeterol [Advair 100-50] 1 puff INH BID 12/04/19 [History] cilostazoL [Cilostazol] 1 tab PO BIDMEALS 12/04/19 [History] - CURRENT (IN HOUSE) MEDS Current Meds: Current Medications Albuterol (Ventolin Hfa) 0 gm INH Q4HR PRN PRN Reason: Wheezing Atorvastatin Calcium (Lipitor) 40 mg PO BEDTIME [facility] Last Admin: 12/05/19 20:42 Dose: 40 mg Documented by: Dextrose/Water (Dextrose 50% In Water) 50 ml IV ASDIRECTED PRN PRN Reason: Hypoglycemia Glucagon (Glucagen) 1 mg IM ASDIRECTED PRN PRN Reason: Hypoglycemia Pantoprazole Sodium 40 mg/ (Sodium Chloride) 10 mls @ 300 mls/hr IV Q12H [facility] Last Admin: 12/06/19 06:23 Dose: 300 mls/hr Documented by: Insulin Glargine (Lantus Solostar) 15 units SUBCUT BEDTIME [facility] Last Admin: 12/05/19 22:12 Dose: Not Given Documented by: Levothyroxine Sodium (Synthroid) 50 mcg PO DAILY@0700 [facility] Last Admin: 12/06/19 06:29 Dose: Not Given Documented by: Ramipril (Altace) 10 mg PO DAILY [facility] Last Admin: 12/05/19 12:03 Dose: 10 mg Documented by: Fluticasone/Salmeterol (Advair Diskus 100-50) 1 puff INH BID [facility] Last Admin: 12/05/19 20:43 Dose: 1 inhalation Documented by: Discontinued Medications Atorvastatin Calcium (Lipitor) 40 mg PO DAILY [facility] Last Admin: 12/05/19 10:52 Dose: Not Given Documented by: Bisacodyl (Dulcolax) 10 mg PO ONETIME ONE Stop: 12/05/19 13:12 Last Admin: 12/05/19 13:18 Dose: 10 mg Documented by: Bisacodyl (Dulcolax) 10 mg PO ONETIME ONE Stop: 12/05/19 21:01 Last Admin: 12/05/19 20:42 Dose: 10 mg Documented by: Pantoprazole Sodium 40 mg/ (Sodium Chloride) 10 mls @ 300 mls/hr IV BID [facility] Influenza Virus Vaccine (Pharmacy To Dose - Influenza Vaccine) 1 each IM ONETIME ONE Stop: 12/04/19 17:57 Last Admin: 12/04/19 19:50 Dose: Not Given Documented by: Influenza Virus Vaccine (Fluzone High-Dose Quad ) 240 mcg IM .ONCE ONE Stop: 12/04/19 18:01 Insulin Glargine (Lantus Solostar) 34 units SUBCUT BEDTIME [facility] Last Admin: 12/05/19 21:52 Dose: 15 units Documented by: Polyethylene Glycol (Miralax) 238 gm PO ONETIME ONE Stop: 12/05/19 17:01 Last Admin: 12/05/19 17:22 Dose: 238 gm Documented by:
--- NOTE | 2019-12-06 08:05 | PCM.PREANE ---
Preanesthetic Assessment - Anesthesia/Transfusion/Family Hx Anesthesia History: Prior Anesthesia Without Reaction Family History of Anesthesia Reaction: No Transfusion History: No Prior Transfusion(s) Intubation History: Unknown - Review of Systems General: No Symptoms Pulmonary: No Symptoms Cardiovascular: No Symptoms Gastrointestinal: Other (h/o colon polyps, signicant new found anemia) Neurological: No Symptoms Other: Reports: None - Physical Assessment Vital Signs: Last Vital Signs Temp 36.3 C 12/06/19 07:47 Pulse 75 12/06/19 07:47 Resp 20 12/06/19 07:47 BP 131/67 12/06/19 07:47 Pulse Ox 95 12/06/19 07:47 Height: 5 ft 6 in Weight: 108.409 kg ASA Class: 3 Mental Status: Alert & Oriented x3 Airway Class: Mallampati = 2 Dentition: Reports: Dentures (upper and lower) Thyro-Mental Finger Breadths: 3 Mouth Opening Finger Breadths: 3 ROM/Head Extension: Limited/Partial Lungs: Clear to Auscultation, Normal Respiratory Effort Cardiovascular: Regular Rate, Regular Rhythm - Lab Values: Laboratory Last Values WBC 8.44 K/uL (4.0-11.0) 12/06/19 05:28 RBC 3.96 M/uL (4.50-5.90) L 12/06/19 05:28 Hgb 9.3 g/dL (13.0-17.0) L 12/06/19 05:28 Hct 31.5 % (38.0-50.0) L 12/06/19 05:28 MCV 79.5 fL (80.0-98.0) L 12/06/19 05:28 MCH 23.5 pg (27.0-32.0) L 12/06/19 05:28 MCHC 29.5 g/dL (31.0-37.0) L 12/06/19 05:28 RDW Std Deviation 50.9 fl (28.0-62.0) 12/06/19 05:28 RDW Coeff of Claus 17 % (11.0-15.0) H 12/06/19 05:28 Plt Count 416 K/uL (150-400) H 12/06/19 05:28 MPV 9.10 fL (7.40-12.00) 12/06/19 05:28 Neut % (Auto) 76.2 % (48.0-80.0) 12/06/19 05:28 Lymph % (Auto) 11.4 % (16.0-40.0) L 12/06/19 05:28 [place] % (Auto) 6.0 % (0.0-15.0) 12/06/19 05:28 Eos % (Auto) 6.0 % (0.0-7.0) 12/06/19 05:28 Baso % (Auto) 0.4 % (0.0-1.5) 12/06/19 05:28 Neut # (Auto) 6.4 K/uL (1.4-5.7) H 12/06/19 05:28 Lymph # (Auto) 1.0 K/uL (0.6-2.4) 12/06/19 05:28 [place] # (Auto) 0.5 K/uL (0.0-0.8) 12/06/19 05:28 Eos # (Auto) 0.5 K/uL (0.0-0.7) 12/06/19 05:28 Baso # (Auto) 0.0 K/uL (0.0-0.1) 12/06/19 05:28 Nucleated RBC % 0.0 /100WBC 12/06/19 05:28 Nucleated RBCs # 0 K/uL 12/06/19 05:28 Sodium 138 mmol/L (136-148) 12/06/19 05:28 Potassium 4.3 mmol/L (3.5-5.1) 12/06/19 05:28 Chloride 105 mmol/L (98-107) 12/06/19 05:28 Carbon Dioxide 22.0 mmol/L (21.0-32.0) 12/06/19 05:28 BUN 18 mg/dL (7.0-18.0) 12/06/19 05:28 Creatinine 1.0 mg/dL (0.8-1.3) 12/06/19 05:28 Est Cr Clr Drug Dosing 50.51 mL/min 12/06/19 05:28 Estimated GFR (MDRD) > 60.0 ml/min 12/06/19 05:28 Glucose 87 mg/dL (74-106) 12/06/19 05:28 POC Glucose 94 mg/dL (60-110) 12/06/19 04:21 Calcium 9.0 mg/dL (8.5-10.1) 12/06/19 05:28 Blood Type O POSITIVE 12/04/19 17:05 Antibody Screen NEGATIVE 12/04/19 17:05 Crossmatch See Detail 12/04/19 17:05 - Allergies Allergies/Adverse Reactions: Allergies Allergy/AdvReac Type Severity Reaction Status Date / Time No Known Allergies Allergy Verified 12/05/19 08:57 - Blood Blood Available: No - Anesthesia Plan Pre-Op Medication Ordered: None - Acknowledgements Anesthesia Type Planned: MAC Pt an Appropriate Candidate for the Planned Anesthesia: Yes Alternatives and Risks of Anesthesia Discussed w Pt/Guardian: Yes Pt/Guardian Understands and Agrees with Anesthesia Plan: Yes PreAnesthesia Questionnaire - Past Health History Medical/Surgical History: Denies Medical/Surgical History HEENT History: Reports: Hard of Hearing Other HEENT History: wears glasses Cardiovascular History: Reports: High Cholesterol Respiratory History: Reports: COPD, Sleep Apnea, SOB (under normal conditions able to walk one block) Other Respiratory History: uses a CPAP Gastrointestinal History: Reports: Colon Polyp Genitourinary History: Reports: BPH Musculoskeletal History: Reports: None Neurological History: Reports: None Psychiatric History: Reports: None Endocrine/Metabolic History: Reports: Diabetes, Type II, Hypothyroidism, Obesity/BMI 30+ Hematologic History: Reports: Anemia (received 4 units of PRBC due to Hg 6, this morning 9.8) Immunologic History: Reports: None Oncologic (Cancer) History: Reports: None Dermatologic History: Reports: None - Infectious Disease History Infectious Disease History: Reports: Chicken Pox, Measles - Past Surgical History Head Surgeries/Procedures: Reports: None HEENT Surgical History: Reports: None Cardiovascular Surgical History: Reports: None Respiratory Surgical History: Reports: None GI Surgical History: Reports: None Male Surgical History: Reports: Circumcision, TURP-Transurethral Resection of Prostate Endocrine Surgical History: Reports: None - SUBSTANCE USE Tobacco Use Status *Q: Former Tobacco User Second Hand Smoke Exposure: No Days Per Week of Alcohol Use: 2 Number of Drinks Per Day: 2 Total Drinks Per Week: 4 Recreational Drug Use History: No - HOME MEDS Home Medications: Home Meds Finasteride 5 mg PO DAILY 08/28/15 [History] Gemfibrozil 600 mg PO BIDMEALS 08/28/15 [History] Insulin Glarg,Human.Rec.Analog [LantUS Solostar] 68 unit SQ BEDTIME 08/28/15 [History] Insulin Lispro [HumaLOG] See Protocol SQ TID MDD 100 units 08/28/15 [History] Levothyroxine Sodium 50 mcg PO DAILY 08/28/15 [History] Meloxicam 15 mg PO DAILY 08/28/15 [History] Ramipril 10 mg PO DAILY 08/28/15 [History] atorvaSTATin Calcium [Atorvastatin Calcium] 40 mg PO DAILY 08/28/15 [History] sitaGLIPtin Phos/Metformin HCl [Janumet 50-1,000 MG] 1 each PO BID 08/28/15 [History] Albuterol Sulfate [Proair Hfa] 2 puff INH Q4HR PRN 12/04/19 [History] Colesevelam [Welchol] 3 tab PO BID 12/04/19 [History] Fluticasone/Salmeterol [Advair 100-50] 1 puff INH BID 12/04/19 [History] cilostazoL [Cilostazol] 1 tab PO BIDMEALS 12/04/19 [History] - CURRENT (IN HOUSE) MEDS Current Meds: Current Medications Albuterol (Ventolin Hfa) 0 gm INH Q4HR PRN PRN Reason: Wheezing Atorvastatin Calcium (Lipitor) 40 mg PO BEDTIME [facility] Last Admin: 12/05/19 20:42 Dose: 40 mg Documented by: Dextrose/Water (Dextrose 50% In Water) 50 ml IV ASDIRECTED PRN PRN Reason: Hypoglycemia Glucagon (Glucagen) 1 mg IM ASDIRECTED PRN PRN Reason: Hypoglycemia Pantoprazole Sodium 40 mg/ (Sodium Chloride) 10 mls @ 300 mls/hr IV Q12H [facility] Last Admin: 12/06/19 06:23 Dose: 300 mls/hr Documented by: Insulin Glargine (Lantus Solostar) 15 units SUBCUT BEDTIME [facility] Last Admin: 12/05/19 22:12 Dose: Not Given Documented by: Levothyroxine Sodium (Synthroid) 50 mcg PO DAILY@0700 [facility] Last Admin: 12/06/19 06:29 Dose: Not Given Documented by: Ramipril (Altace) 10 mg PO DAILY [facility] Last Admin: 12/05/19 12:03 Dose: 10 mg Documented by: Fluticasone/Salmeterol (Advair Diskus 100-50) 1 puff INH BID [facility] Last Admin: 12/05/19 20:43 Dose: 1 inhalation Documented by: Discontinued Medications Atorvastatin Calcium (Lipitor) 40 mg PO DAILY [facility] Last Admin: 12/05/19 10:52 Dose: Not Given Documented by: Bisacodyl (Dulcolax) 10 mg PO ONETIME ONE Stop: 12/05/19 13:12 Last Admin: 12/05/19 13:18 Dose: 10 mg Documented by: Bisacodyl (Dulcolax) 10 mg PO ONETIME ONE Stop: 12/05/19 21:01 Last Admin: 12/05/19 20:42 Dose: 10 mg Documented by: Pantoprazole Sodium 40 mg/ (Sodium Chloride) 10 mls @ 300 mls/hr IV BID [facility] Influenza Virus Vaccine (Pharmacy To Dose - Influenza Vaccine) 1 each IM ONETIM E ONE Stop: 12/04/19 17:57 Last Admin: 12/04/19 19:50 Dose: Not Given Documented by: Influenza Virus Vaccine (Fluzone High-Dose Quad ) 240 mcg IM .ONCE ONE Stop: 12/04/19 18:01 Insulin Glargine (Lantus Solostar) 34 units SUBCUT BEDTIME [facility] Last Admin: 12/05/19 21:52 Dose: 15 units Documented by: Polyethylene Glycol (Miralax) 238 gm PO ONETIME ONE Stop: 12/05/19 17:01 Last Admin: 12/05/19 17:22 Dose: 238 gm Documented by:
[2019-12-06] MEDS ORDERED: fentaNYL 100 MCG/2 ML SDV ONE (08:09)
[2019-12-06] MEDS ORDERED: Propofol 200 MG/20 ML SDV ONE ×3 (08:09→09:39)
--- NOTE | 2019-12-06 08:18 | CONS ---
DATE OF CONSULTATION: 12/05/2019 DATE OF : 1935 PRIMARY CARE PHYSICIAN: Fortunato Dominguez M.D. CONSULTING PHYSICIAN: Dr. Merino, hospitalist. REASON FOR CONSULTATION: Anemia. HISTORY OF PRESENT ILLNESS: The patient is a pleasant 84-year-old gentleman who said he has been having progressive shortness of breath for the past 2 to 3 weeks. He apparently went to his primary care provider who checked the hemoglobin and was down to 6. He was admitted to the hospital for blood transfusion. The patient has so far gotten 2 units of blood. He says he is feeling much better. His shortness of breath has resolved. The patient does not know why he is anemic. The patient did have a colonoscopy done about 3 to 4 years ago. He had some polyps removed and diverticulosis. He was told to come back this spring for another colonoscopy, but he did not because of COVID. The patient also says for the past 2 to 3 months he has been having some upper abdominal discomfort. He says it just kind of feels funny and also having some on and off loose stools. He said, because of the loose stools and the abdominal discomfort, he took some Pepto-Bismol. After taking the Pepto-Bismol, he notes that his stools have been dark, but only dark after taking the Pepto-Bismol. Otherwise, he says that his bowel movements have been normal with no blood in them. The patient denies any heartburn or reflux symptoms. The patient does take meloxicam for his arthritis. PAST MEDICAL HISTORY: Significant for: 1. Diabetes. 2. COPD. 3. Hypothyroidism. 4. Hypercholesterolemia. 5. Hypertension. 6. Asthma. 7. Obstructive sleep apnea. CURRENT HOME MEDICATIONS: 1. Cilostazol 1 tablet p.o. b.i.d. 2. Finasteride 5 mg p.o. daily. 3. Janumet -1000 mg 1 tablet b.i.d. 4. Atorvastatin 40 mg p.o. daily. 5. Meloxicam 15 mg p.o. daily. 6. Synthroid 50 mcg p.o. daily. 7. Insulin Lispro t.i.d. 8. Lantus 68 units at bedtime. 9. Gemfibrozil 600 mg p.o. b.i.d. 10.Advair 1 puff b.i.d. 11.Welchol 2 tablets p.o. b.i.d. 12.Ramipril 10 mg p.o. daily. 13.ProAir inhaler 2 puffs q.2 hours p.r.n. ALLERGIES: No known drug allergies. PAST SURGICAL HISTORY: 1. TURP. 2. He said he needed a circumcision like procedure about 3 years ago. FAMILY HISTORY: The patient denies any family history. SOCIAL HISTORY: The patient quit smoking 13 years ago. Denies illicit drug use. He has whiskey about twice a week. REVIEW OF SYSTEMS: A complete 12-point review of systems was done, was negative aside from the HPI. PULMONARY: The patient had shortness of breath, but this has resolved any blood. GENITOURINARY: The patient says it is hard to get started urination. PHYSICAL EXAMINATION: GENERAL: The patient is sitting comfortably in clinic room. He is alert and oriented, in no acute distress. VITAL SIGNS: Temperature is 97.5, pulse is 82, blood pressure is 160/76, saturating 96% on room air. HEENT: Head is normocephalic and atraumatic. LUNGS: Clear to auscultation bilaterally. No rhonchi or wheezing heard. HEART: Regular rhythm. No murmur appreciated. ABDOMEN: Soft, nontender, nondistended. EXTREMITIES: Some trace edema bilaterally. NEUROLOGIC: Grossly no motor or neurological deficits noted. LABORATORY DATA: From this morning, white cell count is 6.86; hemoglobin 7.2, this is after getting 2 units of blood; platelet count is 417. Sodium 136, potassium 4.9, chloride 109, BUN is 19, creatinine 1, glucose is 66. ASSESSMENT AND PLAN: This is a pleasant 84-year-old gentleman who is anemic. He is being treated with blood transfusion. I did go over with the patient that the anemia is caused by either blood loss or failure to make blood. I did go over with the patient that we could do an upper and lower endoscopy tomorrow to make sure that is not a source of his blood loss. I went over what upper and lower endoscopy was. I went over the risks, goals, and alternatives to the procedures which include, but not limited to bleeding, perforation, missed lesions, infection, failure to complete the procedure. I did go over if I saw any lesions or polyps on either of the procedures, we would try to remove them with biopsies at that time. The patient understands. I also went over with the patient that if we cannot find a cause of his anemia, even if it is a GI bleed sometimes intermittently we might not see it. He did have a negative occult blood stool on admission. Another one is pending. The patient understands. I did talk to Anesthesia so get him scheduled tomorrow morning for an upper and lower endoscopy. I did go over with the patient that he will do a bowel prep today and preparation for procedure tomorrow. All his questions were answered. Did talk to Dr. Merino about the plan and the nurse. DEZ / CLYDE /[id number]
[2019-12-06] MEDS: Fluticasone/Salmeterol 100-50 MCG Inhalation Powder 14/Diskus INH SCH (08:47)
[2019-12-06] MEDS ORDERED: Ondansetron 4 MG/2 ML SDV IVPUSH PRN (09:30)
[2019-12-06] MEDS ORDERED: 50% Dextrose in Water 50 ML Syringe IVPUSH PRN (09:30)
[2019-12-06] MEDS ORDERED: Albuterol 0.083% 2.5 MG/3 ML Neb Soln NEB PRN (09:30)
[2019-12-06] MEDS ORDERED: fentaNYL 100 MCG/2 ML SDV IVPUSH PRN (09:30)
[2019-12-06] MEDS ORDERED: Naloxone 0.4 MG/ML Syringe IVPUSH PRN (09:30)
[2019-12-06] MEDS ORDERED: Atropine 0.1 MG/ML 10 ML Syringe IVPUSH PRN ×2 (09:30)
[2019-12-06] MEDS ORDERED: EPINEPHrine 1:10,000 1 MG/10 ML Syringe IVPUSH PRN (09:30)
--- NOTE | 2019-12-06 09:30 | PCM.PN ---
- General Info Date of Service: 12/06/19 Admission Dx/Problem (Free Text): Admission Diagnosis/Problem Admission Diagnosis/Problem Anemia Subjective Update: Doing well, sitting up in the chair. Had colonoscopy prep overnight, tolerating well. Stool yellow in color and watery. No chest pain or SOB. Feeling better since blood transfusion. Functional Status: Reports: Pain Controlled, Ambulating, Urinating - Review of Systems General: Reports: No Symptoms HEENT: Reports: No Symptoms Pulmonary: Reports: No Symptoms. Denies: Shortness of Breath Cardiovascular: Reports: No Symptoms. Denies: Chest Pain Gastrointestinal: Reports: No Symptoms. Denies: Abdominal Pain, Nausea, Vomiting Genitourinary: Reports: No Symptoms. Denies: Dysuria, Frequency, Burning Musculoskeletal: Reports: No Symptoms Neurological: Reports: No Symptoms Psychiatric: Reports: No Symptoms - Patient Data Vitals - Most Recent: Last Vital Signs Temp 97.3 F 12/06/19 07:47 Pulse 75 12/06/19 07:47 Resp 20 12/06/19 07:47 BP 131/67 12/06/19 07:47 Pulse Ox 95 12/06/19 07:47 Weight - Most Recent: 108.409 kg I&O - Last 24 Hours: Intake & Output 12/05/19 12/06/19 12/06/19 22:59 06:59 14:59 Intake Total 350 2500 Output Total 150 Balance 350 2350 Lab Results Last 24 Hours: Laboratory Results - last 24 hr 12/04/19 12/05/19 12/05/19 Range/Units 17:05 11:33 17:25 WBC (4.0-11.0) K/uL RBC (4.50-5.90) M/uL Hgb (13.0-17.0) g/dL Hct (38.0-50.0) % MCV (80.0-98.0) fL MCH (27.0-32.0) pg MCHC (31.0-37.0) g/dL RDW Std Deviation (28.0-62.0) fl RDW Coeff of Claus (11.0-15.0) % Plt Count (150-400) K/uL MPV (7.40-12.00) fL Neut % (Auto) (48.0-80.0) % Lymph % (Auto) (16.0-40.0) % Cloud % (Auto) (0.0-15.0) % Eos % (Auto) (0.0-7.0) % Baso % (Auto) (0.0-1.5) % Neut # (Auto) (1.4-5.7) K/uL Lymph # (Auto) (0.6-2.4) K/uL [place] # (Auto) (0.0-0.8) K/uL Eos # (Auto) (0.0-0.7) K/uL Baso # (Auto) (0.0-0.1) K/uL Nucleated RBC % /100WBC Nucleated RBCs # K/uL Sodium (136-148) mmol/L Potassium (3.5-5.1) mmol/L Chloride (98-107) mmol/L Carbon Dioxide (21.0-32.0) mmol/L BUN (7.0-18.0) mg/dL Creatinine (0.8-1.3) mg/dL Est Cr Clr Drug Dosing mL/min Estimated GFR (MDRD) ml/min Glucose (74-106) mg/dL POC Glucose 133 H 96 (60-110) mg/dL Calcium (8.5-10.1) mg/dL Blood Type O POSITIVE Antibody Screen NEGATIVE Crossmatch See Detail 12/05/19 12/05/19 12/06/19 Range/Units 19:09 21:34 04:21 WBC 8.74 (4.0-11.0) K/uL RBC 4.32 L (4.50-5.90) M/uL Hgb 10.3 L (13.0-17.0) g/dL Hct 34.2 L (38.0-50.0) % MCV 79.2 L (80.0-98.0) fL MCH 23.8 L (27.0-32.0) pg MCHC 30.1 L (31.0-37.0) g/dL RDW Std Deviation 49.8 (28.0-62.0) fl RDW Coeff of Claus 17 H (11.0-15.0) % Plt Count 452 H (150-400) K/uL MPV 9.10 (7.40-12.00) fL Neut % (Auto) 68.9 (48.0-80.0) % Lymph % (Auto) 17.0 (16.0-40.0) % [place] % (Auto) 7.7 (0.0-15.0) % Eos % (Auto) 6.2 (0.0-7.0) % Baso % (Auto) 0.2 (0.0-1.5) % Neut # (Auto) 6.0 H (1.4-5.7) K/uL Lymph # (Auto) 1.5 (0.6-2.4) K/uL [place] # (Auto) 0.7 (0.0-0.8) K/uL Eos # (Auto) 0.5 (0.0-0.7) K/uL Baso # (Auto) 0.0 (0.0-0.1) K/uL Nucleated RBC % 0.0 /100WBC Nucleated RBCs # 0 K/uL Sodium (136-148) mmol/L Potassium (3.5-5.1) mmol/L Chloride (98-107) mmol/L Carbon Dioxide (21.0-32.0) mmol/L BUN (7.0-18.0) mg/dL Creatinine (0.8-1.3) mg/dL Est Cr Clr Drug Dosing mL/min Estimated GFR (MDRD) ml/min Glucose (74-106) mg/dL POC Glucose 95 94 (60-110) mg/dL Calcium (8.5-10.1) mg/dL Blood Type Antibody Screen Crossmatch 12/06/19 12/06/19 Range/Units 05:28 05:28 WBC 8.44 (4.0-11.0) K/uL RBC 3.96 L (4.50-5.90) M/uL Hgb 9.3 L (13.0-17.0) g/dL Hct 31.5 L (38.0-50.0) % MCV 79.5 L (80.0-98.0) fL MCH 23.5 L (27.0-32.0) pg MCHC 29.5 L (31.0-37.0) g/dL RDW Std Deviation 50.9 (28.0-62.0) fl RDW Coeff of Claus 17 H (11.0-15.0) % Plt Count 416 H (150-400) K/uL MPV 9.10 (7.40-12.00) fL Neut % (Auto) 76.2 (48.0-80.0) % Lymph % (Auto) 11.4 L (16.0-40.0) % [place] % (Auto) 6.0 (0.0-15.0) % Eos % (Auto) 6.0 (0.0-7.0) % Baso % (Auto) 0.4 (0.0-1.5) % Neut # (Auto) 6.4 H (1.4-5.7) K/uL Lymph # (Auto) 1.0 (0.6-2.4) K/uL [place] # (Auto) 0.5 (0.0-0.8) K/uL Eos # (Auto) 0.5 (0.0-0.7) K/uL Baso # (Auto) 0.0 (0.0-0.1) K/uL Nucleated RBC % 0.0 /100WBC Nucleated RBCs # 0 K/uL Sodium 138 (136-148) mmol/L Potassium 4.3 (3.5-5.1) mmol/L Chloride 105 (98-107) mmol/L Carbon Dioxide 22.0 (21.0-32.0) mmol/L BUN 18 (7.0-18.0) mg/dL Creatinine 1.0 (0.8-1.3) mg/dL Est Cr Clr Drug Dosing 50.51 mL/min Estimated GFR (MDRD) > 60.0 ml/min Glucose 87 (74-106) mg/dL POC Glucose (60-110) mg/dL Calcium 9.0 (8.5-10.1) mg/dL Blood Type Antibody Screen Crossmatch Sridhar Results Last 24 Hours: Microbiology 12/05/19 14:50 Stool Occult Blood (SRIDHAR) - Final Stool / Feces Med Orders - Current: Current Medications Albuterol (Ventolin Hfa) 0 gm INH Q4HR PRN PRN Reason: Wheezing Atorvastatin Calcium (Lipitor) 40 mg PO BEDTIME [facility] Last Admin: 12/05/19 20:42 Dose: 40 mg Documented by: Dextrose/Water (Dextrose 50% In Water) 50 ml IV ASDIRECTED PRN PRN Reason: Hypoglycemia Glucagon (Glucagen) 1 mg IM ASDIRECTED PRN PRN Reason: Hypoglycemia Pantoprazole Sodium 40 mg/ (Sodium Chloride) 10 mls @ 300 mls/hr IV Q12H [facility] Last Admin: 12/06/19 06:23 Dose: 300 mls/hr Documented by: Insulin Glargine (Lantus Solostar) 15 units SUBCUT BEDTIME [facility] Last Admin: 12/05/19 22:12 Dose: Not Given Documented by: Levothyroxine Sodium (Synthroid) 50 mcg PO DAILY@0700 [facility] Last Admin: 12/06/19 06:29 Dose: Not Given Documented by: Ramipril (Altace) 10 mg PO DAILY [facility] Last Admin: 12/05/19 12:03 Dose: 10 mg Documented by: Fluticasone/Salmeterol (Advair Diskus 100-50) 1 puff INH BID [facility] Last Admin: 12/06/19 08:47 Dose: 1 inhalation Documented by: Discontinued Medications Atorvastatin Calcium (Lipitor) 40 mg PO DAILY [facility] Last Admin: 12/05/19 10:52 Dose: Not Given Documented by: Bisacodyl (Dulcolax) 10 mg PO ONETIME ONE Stop: 12/05/19 13:12 Last Admin: 12/05/19 13:18 Dose: 10 mg Documented by: Bisacodyl (Dulcolax) 10 mg PO ONETIME ONE Stop: 12/05/19 21:01 Last Admin: 12/05/19 20:42 Dose: 10 mg Documented by: Fentanyl (Sublimaze) Confirm Administered Dose 100 mcg .ROUTE .STK-MED ONE Stop: 12/06/19 08:10 Pantoprazole Sodium 40 mg/ (Sodium Chloride) 10 mls @ 300 mls/hr IV BID [facility] Influenza Virus Vaccine (Pharmacy To Dose - Influenza Vaccine) 1 each IM ONETIME ONE Stop: 12/04/19 17:57 Last Admin: 12/04/19 19:50 Dose: Not Given Documented by: Influenza Virus Vaccine (Fluzone High-Dose Quad ) 240 mcg IM .ONCE ONE Stop: 12/04/19 18:01 Insulin Glargine (Lantus Solostar) 34 units SUBCUT BEDTIME [facility] Last Admin: 12/05/19 21:52 Dose: 15 units Documented by: Polyethylene Glycol (Miralax) 238 gm PO ONETIME ONE Stop: 12/05/19 17:01 Last Admin: 12/05/19 17:22 Dose: 238 gm Documented by: Propofol (Diprivan 20 Ml) Confirm Administered Dose 400 mg .ROUTE .STK-MED ONE Stop: 12/06/19 08:10 Propofol (Diprivan 20 Ml) Confirm Administered Dose 200 mg .ROUTE .STK-MED ONE Stop: 12/06/19 08:10 - Exam General: Alert, Oriented, Cooperative, No Acute Distress Lungs: Clear to Auscultation, Normal Respiratory Effort Cardiovascular: Regular Rate, Regular Rhythm GI/Abdominal Exam: Normal Bowel Sounds, Soft, Non-Tender Extremities: Normal Inspection, Normal Range of Motion, Non-Tender, Pedal Edema (+1 pitting edema BLE) Psy/Mental Status: Alert, Normal Affect, Normal Mood Sepsis Event Note - Evaluation Sepsis Screening Result: No Definite Risk - Focused Exam Vital Signs: Vital Signs Temp Pulse Resp BP BP Pulse Ox 12/06/19 07:47 97.3 F 75 20 131/67 95 12/06/19 04:32 97.2 F 75 18 137/76 96 12/05/19 23:00 97 F 77 18 144/69 H 97 - Problem List & Annotations (1) GI bleed SNOMED Code(s): 45951812 Code(s): K92.2 - GASTROINTESTINAL HEMORRHAGE, UNSPECIFIED Status: Acute Current Visit: Yes (2) Gastritis SNOMED Code(s): 6318057 Code(s): K29.70 - GASTRITIS, UNSPECIFIED, WITHOUT BLEEDING Status: Acute Current Visit: Yes (3) Anemia SNOMED Code(s): 617287864 Code(s): D64.9 - ANEMIA, UNSPECIFIED Status: Acute Current Visit: Yes (4) TANIA (obstructive sleep apnea) SNOMED Code(s): 84751813 Code(s): G47.33 - OBSTRUCTIVE SLEEP APNEA (ADULT) (PEDIATRIC) Status: Chronic Current Visit: Yes (5) Asthma SNOMED Code(s): 558413901 Code(s): J45.909 - UNSPECIFIED ASTHMA, UNCOMPLICATED Status: Chronic Current Visit: Yes (6) DM type 2 (diabetes mellitus, type 2) SNOMED Code(s): 99114099 Code(s): E11.9 - TYPE 2 DIABETES MELLITUS WITHOUT COMPLICATIONS Status: Chronic Current Visit: Yes Qualifiers: Diabetes mellitus bed bug exterminator insulin use: with bed bug exterminator use Diabetes mellitus complication status: without complication Qualified Code(s): E11.9 - Type 2 diabetes mellitus without complications; Z79.4 - MCFP (current) use of insulin - Problem List Review Problem List Initiated/Reviewed/Updated: Yes - Plan Plan:: 84 yo male admitted for symptomatic anemia likely from an chronic GI bleed. 1. Chronic GI bleed with symptomatic anemia - Transfused a total of 4 units since admission, hgb 9.3 this morning. - Feeling improved today, - Prepped for dual scopes today with Dr Dieudonne Merino, general surgery - Continue IV Protonix - Will trend Hgb. - Hold NSAIDs and recommend not restarting 2. Dm Type 2 - Lantus held due to procedure and NPO overnight - Monitor BS with meals and restart insulin when able to eat. 3. TANIA/asthma - Continue Advair 4. Hypothyroidism - Continue Levothyroxine 5. HTN: - Continue Altace - Controlled. VTE prophylaxis: SCDs, no pharmacologic agent due to bleeding. Dispo: 1-2 days
--- NOTE | 2019-12-06 09:49 | PCM.OPNOTE ---
- General Post-Op/Procedure Note Date of Surgery/Procedure: 12/06/19 Operative Procedure(s): Colonoscopy with snarr polypectomy, EGD with Biopsies Findings: small polyps in ascending colon. Hemorrhoids. Normal EGD dictation #[id number] Pre Op Diagnosis: anemia Post-Op Diagnosis: small polyps in ascending colon. Hemorrhoids. Normal EGD Anesthesia Technique: Moderate Sedation Primary Surgeon: Dieudonne Merino Pathology: colon polyps, EGD biopsies Complications: None Condition: Good Free Text/Narrative:: Intake & Output 12/05/19 12/06/19 12/06/19 22:59 06:59 14:59 Intake Total 350 2500 Output Total 150 Balance 350 2350
--- NOTE | 2019-12-06 10:29 | PCM.POSTAN ---
POST ANESTHESIA ASSESSMENT - MENTAL STATUS Mental Status: Alert, Oriented - VITAL SIGNS Vital Signs: Last Vital Signs Temp 36.3 C 12/06/19 07:47 Pulse 74 12/06/19 10:24 Resp 17 12/06/19 10:24 BP 140/67 12/06/19 10:24 Pulse Ox 98 12/06/19 10:24 - RESPIRATORY Respiratory Status: Respiratory Rate WNL, Airway Patent, O2 Saturation Stable - CARDIOVASCULAR CV Status: Pulse Rate WNL, Blood Pressure Stable - GASTROINTESTINAL GI Status: No Symptoms - PAIN Pain Score: 0 - POST OP HYDRATION Hydration Status: Adequate & Stable - OBSERVATIONS Free Text/Narrative:: No anesthesia problems
[2019-12-06] MEDS ORDERED: Iron Sucrose Complex 200 MG in Sodium Chloride 0.9% 100 ML IV ONE (11:30)
--- NOTE | 2019-12-06 13:31 | PN ---
SUBJECTIVE: The patient is sitting comfortably in his room. He says he has had a good bowel prep. His last bowel movements have been clear. He says the shortness of breath has resolved since getting his blood transfusions. OBJECTIVE: VITAL SIGNS: Temperature is 97.3, pulse is 75, blood pressure 131/67, and saturating 95% on room air. LABORATORY DATA: White cell count is 8.44, hemoglobin is 9.3, platelet count is 416. ASSESSMENT AND PLAN: This is a pleasant 84-year-old gentleman who was admitted for symptomatic anemia. He has now had 2 negative stools; however, we will do an upper and lower endoscopy to check for any potential source of anemia. All the patient's questions were answered. He wishes to proceed with the procedure, which will be done later this morning. DEZ TANG /[id number]
--- NOTE | 2019-12-06 13:42 | PCM.DCSUM1 ---
Discharge Summary - Hospital Course Brief History: 84 yo male with pmh of hypothyroidism, DM, asthma and TANIA who presents to the respiratory clinic with complaints of shortness of breath for past week. Patient reports dark diarrhea on and off for past two months. He did have epigastric pain yesterday which he blamed on something he ate. Patient takes meloxicam for arthritis. He had a screening colonoscopy three years ago for polyps and diverticulosis. In the ED he was noted to have a Hgb of 6. Diagnosis: Stroke: No - Discharge Data Discharge Date: 12/06/19 Discharge Disposition: Home, Self-Care 01 Condition: Good - Referral to Home Health Primary Care Physician: Fortunato Dominguez MD - Discharge Diagnosis/Problem(s) (1) GI bleed SNOMED Code(s): 00195724 ICD Code: K92.2 - GASTROINTESTINAL HEMORRHAGE, UNSPECIFIED Status: Acute Current Visit: Yes (2) Gastritis SNOMED Code(s): 5133053 ICD Code: K29.70 - GASTRITIS, UNSPECIFIED, WITHOUT BLEEDING Status: Acute Current Visit: Yes (3) Anemia SNOMED Code(s): 809981192 ICD Code: D64.9 - ANEMIA, UNSPECIFIED Status: Acute Current Visit: Yes (4) TANIA (obstructive sleep apnea) SNOMED Code(s): 08498489 ICD Code: G47.33 - OBSTRUCTIVE SLEEP APNEA (ADULT) (PEDIATRIC) Status: Chronic Current Visit: Yes (5) Asthma SNOMED Code(s): 209712337 ICD Code: J45.909 - UNSPECIFIED ASTHMA, UNCOMPLICATED Status: Chronic Current Visit: Yes (6) DM type 2 (diabetes mellitus, type 2) SNOMED Code(s): 84387738 ICD Code: E11.9 - TYPE 2 DIABETES MELLITUS WITHOUT COMPLICATIONS Status: Chronic Current Visit: Yes Qualifiers: Diabetes mellitus nursing home insulin use: with terminal operator use Diabetes mellitus complication status: without complication Qualified Code(s): E11.9 - Type 2 diabetes mellitus without complications; Z79.4 - intermission coordinator (current) use of insulin (7) Iron deficiency anemia SNOMED Code(s): 22985604 ICD Code: D50.9 - IRON DEFICIENCY ANEMIA, UNSPECIFIED Status: Acute Current Visit: Yes - Patient Summary/Data Operative Procedure(s) Performed: Colonoscopy with snarr polypectomy, EGD with Biopsies Consults: Consultations 12/05/19 09:37 Consult to Physician [CONS] Routine Hospital Course: Admitting Diagnoses: Symptomatic anemia GI bleeding, chronic possible gastritis Discharge Diagnoses: Symptomatic anemia GI bleeding, chronic possible gastritis Jacoby was admitted secondary to symptomatic anemia. He was transfused a total of 4 units pRBCs, which he tolerated well. He was given Protonix and general Surgery consulted. Dual scopes performed today, see Dr Dieudonne Merino's notes. Hgb remained stable today at 9.3 Hemoccult negative x 2. Possible chronic bleed and gastritis from Meloxicam use. He was instructed to stop this and any NSAIDs. He will be given Protonix BID for 1 month. Follow up with PCP in 7-10 days for labwork to evaluate CBC. Iron studies obtained and revealed iron deficiency anemia. He was given 200 mg IV Venofer prior to DC and counseled to take iron daily. I spoke with daughter Nichol who was made aware of plans and scope findings as well. Did mention that if anemia continues, PCP may consider abdominal CT. he is to return to the ED or clinic if concerns should arise. - Patient Instructions Diet: Diabetic Diet Activity: As Tolerated, No Strenuous Activities, Rest and Relax Today Driving: Do Not Drive (today) Showering/Bathing: May Shower Notify Provider of: Fever, Increased Pain, Swelling and Redness, Drainage, Nausea and/or Vomiting Other/Special Instructions: No NSAIDs (Ibuprofen, Advil, Aleve, Motrin,Meloxicam, Celebrex). It is ok to take Tylenol for pain relief as needed. - Discharge Plan *PRESCRIPTION DRUG MONITORING PROGRAM REVIEWED*: Not Applicable *COPY OF PRESCRIPTION DRUG MONITORING REPORT IN PATIENT IDANE: Not Applicable Prescriptions/Med Rec: Iron Polysaccharide Complex [Polysaccharide Iron] 150 mg PO DAILY #60 capsule Pantoprazole Sodium [Protonix] 40 mg PO BID #60 tablet. Home Medications: Home Meds Finasteride 5 mg PO DAILY 08/28/15 [History] Gemfibrozil 600 mg PO BIDMEALS 08/28/15 [History] Insulin Glarg,Human.Rec.Analog [LantUS Solostar] 68 unit SQ BEDTIME 08/28/15 [History] Insulin Lispro [HumaLOG] See Protocol SQ TID MDD 100 units 08/28/15 [History] Levothyroxine Sodium 50 mcg PO DAILY 08/28/15 [History] Ramipril 10 mg PO DAILY 08/28/15 [History] atorvaSTATin Calcium [Atorvastatin Calcium] 40 mg PO DAILY 08/28/15 [History] sitaGLIPtin Phos/Metformin HCl [Janumet 50-1,000 MG] 1 each PO BID 08/28/15 [History] Albuterol Sulfate [Proair Hfa] 2 puff INH Q4HR PRN 12/04/19 [History] Colesevelam [Welchol] 3 tab PO BID 12/04/19 [History] Fluticasone/Salmeterol [Advair 100-50] 1 puff INH BID 12/04/19 [History] cilostazoL [Cilostazol] 1 tab PO BIDMEALS 12/04/19 [History] Iron Polysaccharide Complex [Polysaccharide Iron] 150 mg PO DAILY #60 capsule 12/06/19 [Rx] Pantoprazole Sodium [Protonix] 40 mg PO BID #60 tablet. 12/06/19 [Rx] Oxygen Therapy Mode: Room Air Patient Handouts: Preventing Iron Deficiency Anemia, Adult, Iron tablets, capsules, extended-release tablets, Pantoprazole tablets Referrals: Fortunato Dominguez MD [Primary Care Provider] - 12/20/19 9:30 am (Please arrive 15mins early. Bring ID, insurance information and own facemask please. Thank you!) - Discharge Summary/Plan Comment DC Time >30 min.: No - Patient Data Vitals - Most Recent: Last Vital Signs Temp 97.1 F 12/06/19 11:57 Pulse 84 12/06/19 11:57 Resp 18 12/06/19 11:57 BP 159/70 H 12/06/19 11:57 Pulse Ox 97 12/06/19 11:57 Weight - Most Recent: 108.409 kg I&O - Last 24 hours: Intake & Output 12/05/19 12/06/19 12/06/19 22:59 06:59 14:59 Intake Total 350 2500 400 Output Total 150 Balance 350 2350 400 Lab Results - Last 24 hrs: Laboratory Results - last 24 hr 12/04/19 12/05/19 12/05/19 Range/Units 17:05 17:25 19:09 WBC 8.74 (4.0-11.0) K/uL RBC 4.32 L (4.50-5.90) M/uL Hgb 10.3 L (13.0-17.0) g/dL Hct 34.2 L (38.0-50.0) % MCV 79.2 L (80.0-98.0) fL MCH 23.8 L (27.0-32.0) pg MCHC 30.1 L (31.0-37.0) g/dL RDW Std Deviation 49.8 (28.0-62.0) fl RDW Coeff of Claus 17 H (11.0-15.0) % Plt Count 452 H (150-400) K/uL MPV 9.10 (7.40-12.00) fL Neut % (Auto) 68.9 (48.0-80.0) % Lymph % (Auto) 17.0 (16.0-40.0) % [place] % (Auto) 7.7 (0.0-15.0) % Eos % (Auto) 6.2 (0.0-7.0) % Baso % (Auto) 0.2 (0.0-1.5) % Neut # (Auto) 6.0 H (1.4-5.7) K/uL Lymph # (Auto) 1.5 (0.6-2.4) K/uL [place] # (Auto) 0.7 (0.0-0.8) K/uL Eos # (Auto) 0.5 (0.0-0.7) K/uL Baso # (Auto) 0.0 (0.0-0.1) K/uL Nucleated RBC % 0.0 /100WBC Nucleated RBCs # 0 K/uL Sodium (136-148) mmol/L Potassium (3.5-5.1) mmol/L Chloride (98-107) mmol/L Carbon Dioxide (21.0-32.0) mmol/L BUN (7.0-18.0) mg/dL Creatinine (0.8-1.3) mg/dL Est Cr Clr Drug Dosing mL/min Estimated GFR (MDRD) ml/min Glucose (74-106) mg/dL POC Glucose 96 (60-110) mg/dL Calcium (8.5-10.1) mg/dL Blood Type O POSITIVE Antibody Screen NEGATIVE Crossmatch See Detail 12/05/19 12/06/19 12/06/19 Range/Units 21:34 04:21 05:28 WBC 8.44 (4.0-11.0) K/uL RBC 3.96 L (4.50-5.90) M/uL Hgb 9.3 L (13.0-17.0) g/dL Hct 31.5 L (38.0-50.0) % MCV 79.5 L (80.0-98.0) fL MCH 23.5 L (27.0-32.0) pg MCHC 29.5 L (31.0-37.0) g/dL RDW Std Deviation 50.9 (28.0-62.0) fl RDW Coeff of Claus 17 H (11.0-15.0) % Plt Count 416 H (150-400) K/uL MPV 9.10 (7.40-12.00) fL Neut % (Auto) 76.2 (48.0-80.0) % Lymph % (Auto) 11.4 L (16.0-40.0) % [place] % (Auto) 6.0 (0.0-15.0) % Eos % (Auto) 6.0 (0.0-7.0) % Baso % (Auto) 0.4 (0.0-1.5) % Neut # (Auto) 6.4 H (1.4-5.7) K/uL Lymph # (Auto) 1.0 (0.6-2.4) K/uL [place] # (Auto) 0.5 (0.0-0.8) K/uL Eos # (Auto) 0.5 (0.0-0.7) K/uL Baso # (Auto) 0.0 (0.0-0.1) K/uL Nucleated RBC % 0.0 /100WBC Nucleated RBCs # 0 K/uL Sodium (136-148) mmol/L Potassium (3.5-5.1) mmol/L Chloride (98-107) mmol/L Carbon Dioxide (21.0-32.0) mmol/L BUN (7.0-18.0) mg/dL Creatinine (0.8-1.3) mg/dL Est Cr Clr Drug Dosing mL/min Estimated GFR (MDRD) ml/min Glucose (74-106) mg/dL POC Glucose 95 94 (60-110) mg/dL Calcium (8.5-10.1) mg/dL Blood Type Antibody Screen Crossmatch 12/06/19 Range/Units 05:28 WBC (4.0-11.0) K/uL RBC (4.50-5.90) M/uL Hgb (13.0-17.0) g/dL Hct (38.0-50.0) % MCV (80.0-98.0) fL MCH (27.0-32.0) pg MCHC (31.0-37.0) g/dL RDW Std Deviation (28.0-62.0) fl RDW Coeff of Claus (11.0-15.0) % Plt Count (150-400) K/uL MPV (7.40-12.00) fL Neut % (Auto) (48.0-80.0) % Lymph % (Auto) (16.0-40.0) % [place] % (Auto) (0.0-15.0) % Eos % (Auto) (0.0-7.0) % Baso % (Auto) (0.0-1.5) % Neut # (Auto) (1.4-5.7) K/uL Lymph # (Auto) (0.6-2.4) K/uL [place] # (Auto) (0.0-0.8) K/uL Eos # (Auto) (0.0-0.7) K/uL Baso # (Auto) (0.0-0.1) K/uL Nucleated RBC % /100WBC Nucleated RBCs # K/uL Sodium 138 (136-148) mmol/L Potassium 4.3 (3.5-5.1) mmol/L Chloride 105 (98-107) mmol/L Carbon Dioxide 22.0 (21.0-32.0) mmol/L BUN 18 (7.0-18.0) mg/dL Creatinine 1.0 (0.8-1.3) mg/dL Est Cr Clr Drug Dosing 50.51 mL/min Estimated GFR (MDRD) > 60.0 ml/min Glucose 87 (74-106) mg/dL POC Glucose (60-110) mg/dL Calcium 9.0 (8.5-10.1) mg/dL Blood Type Antibody Screen Crossmatch CY Results - Last 24 hrs: Microbiology 12/05/19 14:50 Stool Occult Blood (CY) - Final Stool / Feces Med Orders - Current: Current Medications Albuterol (Ventolin Hfa) 0 gm INH Q4HR PRN PRN Reason: Wheezing Albuterol (Proventil Neb Soln) 2.5 mg NEB ONETIME PRN PRN Reason: Wheezing Atorvastatin Calcium (Lipitor) 40 mg PO BEDTIME [facility] Last Admin: 12/05/19 20:42 Dose: 40 mg Documented by: Atropine Sulfate (Atropine 0.1 Mg/Ml) 0.5 mg IVPUSH ASDIRECTED PRN PRN Reason: Hypo-perfusion Atropine Sulfate (Atropine 0.1 Mg/Ml) 1 mg IVPUSH ASDIRECTED PRN PRN Reason: Hypo-Perfusion Dextrose/Water (Dextrose 50% In Water) 50 ml IV ASDIRECTED PRN PRN Reason: Hypoglycemia Dextrose/Water (Dextrose 50% In Water) 50 ml IVPUSH ASDIRECTED PRN PRN Reason: Hypoglycemia Epinephrine HCl (Epinephrine 1:10,000) 1 mg IVPUSH ASDIRECTED PRN PRN Reason: ACLS Guidelines Fentanyl (Sublimaze) 50 mcg IVPUSH Q5M PRN PRN Reason: Pain Glucagon (Glucagen) 1 mg IM ASDIRECTED PRN PRN Reason: Hypoglycemia Pantoprazole Sodium 40 mg/ (Sodium Chloride) 10 mls @ 300 mls/hr IV Q12H [facility] Last Admin: 12/06/19 06:23 Dose: 300 mls/hr Documented by: Insulin Glargine (Lantus Solostar) 15 units SUBCUT BEDTIME [facility] Last Admin: 12/05/19 22:12 Dose: Not Given Documented by: Levothyroxine Sodium (Synthroid) 50 mcg PO DAILY@0700 [facility] Last Admin: 12/06/19 10:59 Dose: 50 mcg Documented by: Naloxone HCl (Narcan) 0.1 mg IVPUSH ASDIRECTED PRN PRN Reason: Respiratory Depression Ondansetron HCl (Zofran) 4 mg IVPUSH ONETIME PRN PRN Reason: Nausea/Vomiting Ramipril (Altace) 10 mg PO DAILY [facility] Last Admin: 12/06/19 10:57 Dose: 10 mg Documented by: Fluticasone/Salmeterol (Advair Diskus 100-50) 1 puff INH BID [facility] Last Admin: 12/06/19 08:47 Dose: 1 inhalation Documented by: Discontinued Medications Atorvastatin Calcium (Lipitor) 40 mg PO DAILY [facility] Last Admin: 12/05/19 10:52 Dose: Not Given Documented by: Bisacodyl (Dulcolax) 10 mg PO ONETIME ONE Stop: 12/05/19 13:12 Last Admin: 12/05/19 13:18 Dose: 10 mg Documented by: Bisacodyl (Dulcolax) 10 mg PO ONETIME ONE Stop: 12/05/19 21:01 Last Admin: 12/05/19 20:42 Dose: 10 mg Documented by: Fentanyl (Sublimaze) Confirm Administered Dose 100 mcg .ROUTE .STK-MED ONE Stop: 12/06/19 08:10 Pantoprazole Sodium 40 mg/ (Sodium Chloride) 10 mls @ 300 mls/hr IV BID [facility] Iron Sucrose 200 mg/ Sodium (Chloride) 110 mls @ 400 mls/hr IV ONETIME ONE Stop: 12/06/19 11:46 Last Admin: 12/06/19 11:58 Dose: 400 mls/hr Documented by: Influenza Virus Vaccine (Pharmacy To Dose - Influenza Vaccine) 1 each IM ONETIME ONE Stop: 12/04/19 17:57 Last Admin: 12/04/19 19:50 Dose: Not Given Documented by: Influenza Virus Vaccine (Fluzone High-Dose Quad ) 240 mcg IM .ONCE ONE Stop: 12/04/19 18:01 Insulin Glargine (Lantus Solostar) 34 units SUBCUT BEDTIME [facility] Last Admin: 12/05/19 21:52 Dose: 15 units Documented by: Lidocaine HCl (Xylocaine-Mpf 1%) Confirm Administered Dose 5 ml .ROUTE .STK-MED ONE Stop: 12/06/19 09:30 Polyethylene Glycol (Miralax) 238 gm PO ONETIME ONE Stop: 12/05/19 17:01 Last Admin: 12/05/19 17:22 Dose: 238 gm Documented by: Propofol (Diprivan 20 Ml) Confirm Administered Dose 400 mg .ROUTE .STK-MED ONE Stop: 12/06/19 08:10 Propofol (Diprivan 20 Ml) Confirm Administered Dose 200 mg .ROUTE .STK-MED ONE Stop: 12/06/19 08:10 Propofol (Diprivan 20 Ml) Confirm Administered Dose 200 mg .ROUTE .[facility] ONE Stop: 12/06/19 09:40
[2019-12-06] MEDS ORDERED: FLU Vacc QV2020-21(65YR UP)/PF 240 MCG/0.7 ML Syringe IM ONE (13:45)
--- NOTE | 2019-12-06 13:49 | OR ---
SURGEON: MUKUL DANIELLE MD DATE OF PROCEDURE: 12/06/2019 PREOPERATIVE DIAGNOSIS: Anemia. POSTOPERATIVE DIAGNOSES: 1. Small polyps in the ascending colon. 2. Internal and external hemorrhoids. 3. Normal esophagogastroduodenoscopy. PROCEDURES PERFORMED: 1. Colonoscopy. 2. Snare polypectomy. 3. Esophagogastroduodenoscopy with biopsies. BOWEL PREP: Very good. LIMITATIONS: None. WITHDRAWAL TIME: 15 minutes. REASON FOR PROCEDURE: The patient is a pleasant 84-year-old gentleman who was having shortness of breath, came in, was found to be anemic. He has received multiple units of RBCs and says he has resolution of his shortness of breath. The patient really denies any blood in his stool. He says he will occasionally get some black stools, which are usually right after having Pepto-Bismol. PROCEDURE DETAILS: Physical examination was performed. Major risks and benefits associated with the procedure explained to the patient in detail. The patient verbalized understanding of the same. The patient was then connected to appropriate monitoring devices and IV started. EKG, pulse, pulse oximetry, blood pressure, and capnography were monitored throughout the procedure. Oxygenation and sedation were provided by the anesthesiologist. The patient was placed in left lateral decubitus position. Sedation was began. After adequate sedation was achieved, an upper endoscope was advanced under direct visualization without difficulty to the upper GI tract. The anatomy and mucosa of the esophagus, GE junction, pylorus, and at least the first part of the duodenum were all inspected. Duodenum, I went pretty far into the duodenum and slowly withdrawn. No ulcerations or duodenitis seen. Pylorus and stomach also appeared with normal mucosa. Both retrograde and antegrade views of the stomach were done. No ulcers were seen. Did do some biopsies around the pylorus to check for H. pylori. The scope was brought to the GE junction. GE junction was at about 41 cm from the incisors. The squamocolumnar junction was intact. Scope was brought back into the stomach. Stomach was desufflated. The biopsy area had good hemostasis. Scope was brought up to the esophagus. Esophagus also appeared normal. Scope was completely removed and this part of the procedure was terminated. Gloves and scopes were changed. Now, a rectal exam was done. No rectal masses or polyps were felt. Did have some small external hemorrhoids that were noninflamed. Now, a well-lubricated Olympus colonoscope was entered in the rectum, advanced under direct visualization to the level of the cecum. Cecum was identified by both visual and anatomic landmarks. Photograph was taken of the cecal cap. The scope was then slowly withdrawn in somewhat circular fashion looking at the color, texture, anatomy, and integrity of the mucosa from the cecum to the anal canal. The patient did have some liquid stool, which was suctioned and irrigated out with excellent look at the mucosa. The patient had two smaller sessile polyps to the area of the ileocecal valve in the ascending colon. These were both removed with the snare polypectomy. They appeared to be completely removed with some good hemostasis. Scope was continued to be withdrawn. No other polyps were seen. The patient did have some scattered diverticulosis throughout his sigmoid colon. No signs of any recent bleeding. Scope was retroflexed in the rectum. He had some internal hemorrhoids, noninflammatory. No stigmata of recent bleeding. Scope was then completely removed and the procedure was terminated. ENDOSCOPIC DIAGNOSES: 1. Normal esophagogastroduodenoscopy. 2. Polyps in ascending colon. 3. Diverticulosis, sigmoid colon. 4. Hemorrhoids. RECOMMENDATIONS: 1. Follow up with pathology. Most likely will another one in 5 years, sooner if he develops signs or symptoms such as change in bowel habits or blood in the stool. 2. The patient will unlikely need another followup EGD unless he has change in symptoms. The patient should follow up in clinic to go over the pathology results. DEZ TANG /[id number]
[2019-12-06 18:24] VITALS: BP 159/76; PULSE 85
--- NOTE | 2019-12-07 09:43 | PCM48HPAN ---
Post Anesthesia Note - EVALUATION WITHIN 48HRS OF ANESTHETIC Vital Signs in Normal Range: Yes Patient Participated in Evaluation: Yes Respiratory Function Stable: Yes Airway Patent: Yes Cardiovascular Function Stable: Yes Hydration Status Stable: Yes Pain Control Satisfactory: Yes Nausea and Vomiting Control Satisfactory: Yes Mental Status Recovered: Yes Vital Signs: Last Vital Signs Temp 36 C L 12/06/19 14:00 Pulse 85 12/06/19 14:00 Resp 18 12/06/19 14:00 BP 159/76 H 12/06/19 14:00 Pulse Ox 96 12/06/19 14:00 - COMMENTS/OBSERVATIONS Free Text/Narrative:: No anesthesia problems
== END 2019-12-06 14:20 | disposition home or self-care (01) | DRG 811 ==
LOC: MW.MS 17:32
PROVIDERS: ADMIT Internal Medicine; ATTEND Internal Medicine
PROC: 30233N1 Transfusion of Nonautologous Red Blood Cells into Peripheral Vein, Percutaneous Approach (ICD-10-PCS; 2019-12-04)
PROC: 3E02340 Introduction of Influenza Vaccine into Muscle, Percutaneous Approach (ICD-10-PCS; principal; 2019-12-06)
PROC: 0DBK8ZZ Excision of Ascending Colon, Via Natural or Artificial Opening Endoscopic (ICD-10-PCS; 2019-12-06)
PROC: 0DB78ZX Excision of Stomach, Pylorus, Via Natural or Artificial Opening Endoscopic, Diagnostic (ICD-10-PCS; 2019-12-06)
DX: D50.9 Iron deficiency anemia, unspecified (principal); K29.01 Acute gastritis with bleeding; K57.31 Diverticulosis of large intestine without perforation or abscess with bleeding; G47.33 Obstructive sleep apnea (adult) (pediatric); M19.90 Unspecified osteoarthritis, unspecified site; J45.909 Unspecified asthma, uncomplicated; K63.5 Polyp of colon; T39.395A Adverse effect of other nonsteroidal anti-inflammatory drugs [NSAID], initial encounter; K64.4 Residual hemorrhoidal skin tags; K64.8 Other hemorrhoids; E11.9 Type 2 diabetes mellitus without complications; J44.9 Chronic obstructive pulmonary disease, unspecified; E03.9 Hypothyroidism, unspecified; E78.00 Pure hypercholesterolemia, unspecified; I10 Essential (primary) hypertension; Z79.4 Long term (current) use of insulin; Z23 Encounter for immunization; Z79.51 Long term (current) use of inhaled steroids; Z79.899 Other long term (current) drug therapy
CPT/HCPCS: 36415; 36430; 80048; 82272; 82962; 85025; 86850; 86900; 86901; 86920; 86921; 86922; 88305; 88313; 90662; 94664; A9270-GY; C9113; G0008; J1756; J1815-GY; J2001; J2704; J3010; P9016

== ENCOUNTER 2020-06-15 08:05 | Emergency (ER) | payer MEDICARE ==
--- NOTE | 2020-06-15 08:34 | EDM.PDOC ---
ED HPI GENERAL MEDICAL PROBLEM - General Chief Complaint: Respiratory Problem Stated Complaint: shortness of breath Time Seen by Provider: 06/15/20 08:24 Source of Information: Reports: Patient History Limitations: Reports: No Limitations - History of Present Illness INITIAL COMMENTS - FREE TEXT/NARRATIVE: Patient is an 84-year-old male who presents today for shortness of breath for the past few days. Patient states that he is also had a dry cough. Patient states he just feels weak and tired as if he cannot catch his breath. Patient has symptoms similar to this in the past where he was found to have a low hemoglobin. There was no source of his drop in hemoglobin there was no GI bleed the patient was placed on iron pills. Patient currently denies any chest pain abdominal pain fevers or chills. - Related Data Allergies Allergy/AdvReac Type Severity Reaction Status Date / Time No Known Allergies Allergy Verified 06/15/20 08:12 Home Meds: Home Meds Finasteride 5 mg PO DAILY 08/28/15 [History] Gemfibrozil 600 mg PO BIDMEALS 08/28/15 [History] Insulin Glarg,Human.Rec.Analog [LantUS Solostar] 68 unit SQ BEDTIME 08/28/15 [History] Insulin Lispro [HumaLOG] See Protocol SQ TID MDD 100 units 08/28/15 [History] Levothyroxine Sodium 50 mcg PO DAILY 08/28/15 [History] Ramipril 10 mg PO DAILY 08/28/15 [History] atorvaSTATin Calcium [Atorvastatin Calcium] 40 mg PO DAILY 08/28/15 [History] sitaGLIPtin Phos/Metformin HCl [Janumet 50-1,000 MG] 1 each PO BID 08/28/15 [History] Albuterol Sulfate [Proair Hfa] 2 puff INH Q4HR PRN 12/04/19 [History] Colesevelam [Welchol] 3 tab PO BID 12/04/19 [History] Fluticasone/Salmeterol [Advair 100-50] 1 puff INH BID 12/04/19 [History] cilostazoL [Cilostazol] 1 tab PO BIDMEALS 12/04/19 [History] Iron Polysaccharide Complex [Polysaccharide Iron] 150 mg PO DAILY #60 capsule 12/06/19 [Rx] Pantoprazole Sodium [Protonix] 40 mg PO BID #60 tablet. 12/06/19 [Rx] traMADol [Ultram] 50 mg PO BID 06/15/20 [History] Past Medical History - Past Health History Medical/Surgical History: Denies Medical/Surgical History HEENT History: Reports: Hard of Hearing Other HEENT History: wears glasses Cardiovascular History: Reports: High Cholesterol Respiratory History: Reports: COPD, Sleep Apnea, SOB Other Respiratory History: uses a CPAP Gastrointestinal History: Reports: Colon Polyp Genitourinary History: Reports: BPH Musculoskeletal History: Reports: None Neurological History: Reports: None Psychiatric History: Reports: None Endocrine/Metabolic History: Reports: Diabetes, Type II, Hypothyroidism, Obesity/BMI 30+ Hematologic History: Reports: Anemia Immunologic History: Reports: None Oncologic (Cancer) History: Reports: None Dermatologic History: Reports: None - Infectious Disease History Infectious Disease History: Reports: Chicken Pox, Measles - Past Surgical History Head Surgeries/Procedures: Reports: None HEENT Surgical History: Reports: None Cardiovascular Surgical History: Reports: None Respiratory Surgical History: Reports: None GI Surgical History: Reports: None Male Surgical History: Reports: Circumcision, TURP-Transurethral Resection of Prostate Endocrine Surgical History: Reports: None Neurological Surgical History: Reports: Laminectomy Musculoskeletal Surgical History: Reports: None Oncologic Surgical History: Reports: None Dermatological Surgical History: Reports: None Social & Family History - Family History Family Medical History: No Pertinent Family History - Tobacco Use Tobacco Use Status *Q: Former Tobacco User Used Tobacco, but Quit: Yes Month/Year Tobacco Last Used: 2007 - Caffeine Use Caffeine Use: Reports: None - Recreational Drug Use Recreational Drug Use: No ED ROS GENERAL - Review of Systems Review Of Systems: See Below Constitutional: Reports: No Symptoms HEENT: Reports: No Symptoms Respiratory: Reports: Shortness of Breath Cardiovascular: Reports: No Symptoms Endocrine: Reports: No Symptoms GI/Abdominal: Reports: No Symptoms : Reports: No Symptoms Musculoskeletal: Reports: No Symptoms Skin: Reports: No Symptoms Neurological: Reports: No Symptoms Psychiatric: Reports: No Symptoms Hematologic/Lymphatic: Reports: No Symptoms Immunologic: Reports: No Symptoms ED EXAM, GENERAL - Physical Exam Exam: See Below Exam Limited By: No Limitations General Appearance: Alert, WD/WN, No Apparent Distress Eye Exam: Bilateral Eye: EOMI, PERRL Nose: Normal Inspection Throat/Mouth: Normal Inspection Head: Atraumatic, Normocephalic Respiratory/Chest: No Respiratory Distress, Lungs Clear, Normal Breath Sounds Cardiovascular: Normal Peripheral Pulses, Regular Rate, Rhythm GI/Abdominal: Normal Bowel Sounds, Soft, Non-Tender Back Exam: Normal Inspection Extremities: Normal Inspection, Normal Range of Motion Neurological: Alert, Oriented, CN II-XII Intact, Normal Cognition, Normal Gait #1 Interpretation EKG Date: 06/15/20 Time: 08:12 Rhythm: NSR Rate (Beats/Min): 91 ST-T: Normal Course - Vital Signs Last Recorded V/S: Last Vital Signs Temp Pulse 87 06/15/20 09:01 Resp 18 06/15/20 09:01 BP 152/73 H 06/15/20 09:01 Pulse Ox 95 06/15/20 09:01 - Orders/Labs/Meds Orders: Active Orders 24 hr Category Date Time Status EKG 12 Lead [EKG Documentation Completion] [RC] STAT Care 06/15/20 08:29 Active Labs: Laboratory Tests 06/15/20 06/15/20 Range/Units 08:19 08:19 WBC 6.83 (4.0-11.0) K/uL RBC 3.60 L (4.50-5.90) M/uL Hgb 10.7 L (13.0-17.0) g/dL Hct 34.3 L (38.0-50.0) % MCV 95.3 (80.0-98.0) fL MCH 29.7 (27.0-32.0) pg MCHC 31.2 (31.0-37.0) g/dL RDW Std Deviation 50.6 (28.0-62.0) fl RDW Coeff of Claus 15 (11.0-15.0) % Plt Count 360 (150-400) K/uL MPV 11.00 (7.40-12.00) fL Neut % (Auto) 67.0 (48.0-80.0) % Lymph % (Auto) 18.4 (16.0-40.0) % Gibson % (Auto) 6.3 (0.0-15.0) % Eos % (Auto) 7.9 H (0.0-7.0) % Baso % (Auto) 0.4 (0.0-1.5) % Neut # (Auto) 4.6 (1.4-5.7) K/uL Lymph # (Auto) 1.3 (0.6-2.4) K/uL Gibson # (Auto) 0.4 (0.0-0.8) K/uL Eos # (Auto) 0.5 (0.0-0.7) K/uL Baso # (Auto) 0.0 (0.0-0.1) K/uL Nucleated RBC % 0.0 /100WBC Nucleated RBCs # 0 K/uL Sodium 139 (136-148) mmol/L Potassium 4.7 (3.5-5.1) mmol/L Chloride 106 (98-107) mmol/L Carbon Dioxide 19.3 L (21.0-32.0) mmol/L BUN 25 H (7.0-18.0) mg/dL Creatinine 1.4 H (0.8-1.3) mg/dL Est Cr Clr Drug Dosing 36.08 mL/min Estimated GFR (MDRD) 48.4 ml/min Glucose 208 H (74-106) mg/dL Calcium 8.9 (8.5-10.1) mg/dL Magnesium 1.9 (1.8-2.4) mg/dL Total Bilirubin 0.2 (0.2-1.0) mg/dL AST 17 (15-37) IU/L ALT 20 (14-63) IU/L Alkaline Phosphatase 132 H (46-116) U/L Creatine Kinase 120 (26-308) U/L Troponin I < 0.050 (0.000-0.056) ng/mL Total Protein 7.9 (6.4-8.2) g/dL Albumin 3.7 (3.4-5.0) g/dL Globulin 4.2 H (2.6-4.0) g/dL Albumin/Globulin Ratio 0.9 (0.9-1.6) Lipase 206 (73-393) U/L - Re-Assessments/Exams Free Text/Narrative Re-Assessment/Exam: 06/15/20 09:58 Patient hemoglobin is stable above his baseline. Patient also had a small drop in his bicarb but looking at previous labs bicarb seems to have been low previous lab draws. Patient x-ray is clear. Patient has been satting greater than 97% on room air. No clear cause of patient's shortness of breath. Patient on discharge does not look well and has follow-up this week with PMD. Departure - Departure Time of Disposition: 09:59 Disposition: Home, Self-Care 01 Condition: Good Clinical Impression: SOB (shortness of breath) - Discharge Information *PRESCRIPTION DRUG MONITORING PROGRAM REVIEWED*: Not Applicable *COPY OF PRESCRIPTION DRUG MONITORING REPORT IN PATIENT DIANE: Not Applicable Instructions: Shortness of Breath, Adult Referrals: PCP,None [Primary Care Provider] - Forms: ED Department Discharge Additional Instructions: The following information is given to patients seen in the emergency department who are being discharged to home. This information is to outline your options for follow-up care. We provide all patients seen in our emergency department with a follow-up referral. The need for follow-up, as well as the timing and circumstances, are variable depending upon the specifics of your emergency department visit. If you don't have a primary care physician on staff, we will provide you with a referral. We always advise you to contact your personal physician following an emergency department visit to inform them of the circumstance of the visit and for follow-up with them and/or the need for any referrals to a consulting specialist. The emergency department will also refer you to a specialist when appropriate. This referral assures that you have the opportunity for follow-up care with a specialist. All of these measure are taken in an effort to provide you with optimal care, which includes your follow-up. Under all circumstances we always encourage you to contact your private physician who remains a resource for coordinating your care. When calling for follow-up care, please make the office aware that this follow-up is from your recent emergency room visit. If for any reason you are refused follow-up, please contact the [facility] Emergency Department at and asked to speak to the emergency department charge nurse. Please follow up with your primary care physician. If you do not have a primary care physician, see below: [facility] [address] [place] [id number] [facility] [address] [place] [address] You were seen today for shortness of breath. We took x-rays that were clear we also checked her hemoglobin which looks to be stable at her baseline. Your oxygen level was greater than 96% while you are in the ER as well on room air. We recommend you continue to follow-up with your primary medical doctor this of your schedule. If you have any other concerning signs or symptoms please return to the ED. Sepsis Event Note (ED) - Evaluation Sepsis Screening Result: No Definite Risk - Focused Exam Vital Signs: Vital Signs Pulse Resp BP Pulse Ox 06/15/20 09:01 87 18 152/73 H 95 06/15/20 08:14 92 24 H 159/70 H 97 - My Orders Last 24 Hours: My Active Orders 06/15/20 08:29 EKG 12 Lead [EKG Documentation Completion] [RC] STAT - Assessment/Plan Last 24 Hours: My Active Orders 06/15/20 08:29 EKG 12 Lead [EKG Documentation Completion] [RC] STAT Plan: Patient is an 84-year-old male who presents today for shortness of breath. In the past patient had a low hemoglobin which causes shortness of breath. We will check patient's CBC obtain x-ray and EKG and reassess.
[2020-06-15 08:59] LABS: BLOOD UREA NITROGEN,BUN 25 mg/dL (7.0-18.0); CARBON DIOXIDE,CO2 19.3 mmol/L (21.0-32.0); CHLORIDE,CL 106 mmol/L (98-107); GLUCOSE RANDOM 208 mg/dL (74-106); LIPASE 206 U/L (73-393); POTASSIUM,K 4.7 mmol/L (3.5-5.1); SODIUM,NA 139 mmol/L (136-148)
[2020-06-15 09:02] VITALS: PULSE 87
--- NOTE | 2020-06-15 09:28 | CR ---
INDICATION: Dyspnea. Dry cough. COMPARISON: 04 December 2019. TECHNIQUE: Two views. IMPRESSION: Chronic prominence of cardiac silhouette. No acute cardiopulmonary disease. No change from comparison. Dictated by Navjot Bravo MD @ 06/15/2020 9:26:[address] Navjot Bravo @ Jun 15 2020 9:26AM
[2020-06-15 10:07] VITALS: BP 133/66
== END 2020-06-15 10:07 | disposition home or self-care (01) ==
LOC: MW.ED 08:05
DX: R06.02 Shortness of breath (principal); E11.9 Type 2 diabetes mellitus without complications; E78.00 Pure hypercholesterolemia, unspecified; J44.9 Chronic obstructive pulmonary disease, unspecified; E03.9 Hypothyroidism, unspecified; E66.9 Obesity, unspecified; Z68.37 Body mass index [BMI] 37.0-37.9, adult; Z79.4 Long term (current) use of insulin
CPT/HCPCS: 36415; 71046; 71046-26; 80053; 82550; 83690; 83735; 84484; 85025; 93005; 93010; 99284; 99285-25

== ENCOUNTER 2020-12-22 07:08 | Emergency (ER) | payer MEDICARE ==
[2020-12-22] MEDS ORDERED: Ketorolac 30 MG/ML SDV IM ONE (07:35)
[2020-12-22] MEDS ORDERED: Diazepam 5 MG Tab PO ONE (07:35)
--- NOTE | 2020-12-22 07:39 | EDM.PDOC ---
ED HPI GENERAL MEDICAL PROBLEM - General Chief Complaint: Back Pain or Injury Stated Complaint: PAIN IN LEFT HIP AND BACK Time Seen by Provider: 12/22/20 07:10 - History of Present Illness INITIAL COMMENTS - FREE TEXT/NARRATIVE: 85-year-old male presenting with worsening left leg pain. Patient has a history over the last several months of left leg pain radiating into the left calf. He was initially tried on pregabalin but had a poor reaction to it he is now on gabapentin twice daily as well as tramadol twice daily. Patient has had no new injury or fall but for the last 3 days has had worsening of the pain up to severe from a baseline of 3 out of 10. It is constant and worsens with ambulation there are no alleviating factors starts in the left buttock and radiates down the left leg. There is no midline back pain no fevers. No urinary symptoms. Patient was treated with an epidural steroid injection with his pain once in the past but it only helped for a day and led to elevated blood sugars. lower back Pain Score (Numeric/FACES): 10 - Related Data Allergies Allergy/AdvReac Type Severity Reaction Status Date / Time No Known Allergies Allergy Verified 12/22/20 07:24 Home Meds: Home Meds Insulin Glarg,Human.Rec.Analog [LantUS Solostar] 68 unit SQ BEDTIME 08/28/15 [History] Insulin Lispro [HumaLOG] See Protocol SQ TID MDD 100 units 08/28/15 [History] Levothyroxine Sodium 50 mcg PO DAILY 08/28/15 [History] Ramipril 10 mg PO DAILY 08/28/15 [History] atorvaSTATin Calcium [Atorvastatin Calcium] 40 mg PO DAILY 08/28/15 [History] sitaGLIPtin Phos/Metformin HCl [Janumet 50-1,000 MG] 1 each PO BID 08/28/15 [History] Albuterol Sulfate [Proair Hfa] 2 puff INH Q4HR PRN 12/04/19 [History] Colesevelam [Welchol] 3 tab PO BID 12/04/19 [History] cilostazoL [Cilostazol] 1 tab PO BIDMEALS 12/04/19 [History] Iron Polysaccharide Complex [Polysaccharide Iron] 150 mg PO DAILY #60 capsule 12/06/19 [Rx] traMADol [Ultram] 50 mg PO BID 06/15/20 [History] Past Medical History - Past Health History Medical/Surgical History: Denies Medical/Surgical History HEENT History: Reports: Hard of Hearing Other HEENT History: wears glasses Cardiovascular History: Reports: High Cholesterol, Hypertension Respiratory History: Reports: COPD, Sleep Apnea, SOB Other Respiratory History: uses a CPAP Gastrointestinal History: Reports: Colon Polyp Genitourinary History: Reports: BPH Musculoskeletal History: Reports: None Neurological History: Reports: None Psychiatric History: Reports: None Endocrine/Metabolic History: Reports: Diabetes, Type II, Hypothyroidism, Obesity/BMI 30+ Hematologic History: Reports: Anemia Immunologic History: Reports: None Oncologic (Cancer) History: Reports: None Dermatologic History: Reports: None - Infectious Disease History Infectious Disease History: Reports: Chicken Pox, Measles - Past Surgical History Head Surgeries/Procedures: Reports: None HEENT Surgical History: Reports: None Cardiovascular Surgical History: Reports: None Respiratory Surgical History: Reports: None GI Surgical History: Reports: Colonoscopy Male Surgical History: Reports: Circumcision, TURP-Transurethral Resection of Prostate Endocrine Surgical History: Reports: None Neurological Surgical History: Reports: Laminectomy Musculoskeletal Surgical History: Reports: None Oncologic Surgical History: Reports: None Dermatological Surgical History: Reports: None Social & Family History - Family History Family Medical History: No Pertinent Family History - Caffeine Use Caffeine Use: Reports: None - Recreational Drug Use Recreational Drug Use: No ED ROS GENERAL - Review of Systems Review Of Systems: See Below Free Text/Narrative/Comment: General: No fever. Neck: No neck stiffness. Respiratory: No shortness of breath. Cardiac: No chest pain. Gastrointestinal: No nausea, vomiting or abdominal pain. Urinary: No dysuria. Musculoskeletal: Per HPI Neurologic: No headache. ED EXAM, GENERAL - Physical Exam Exam: See Below Free Text/Narrative:: General Appearance: No acute distress, appears comfortable Skin: No rash HEENT: Normocephalic/atraumatic, sclera anicteric, mucous membranes moist Neck: Normal range of motion Chest and Lungs: Bilateral breath sounds, clear to auscultation Cardiovascular: Regular rate and rhythm Abdomen: Soft, non-tender Musculoskeletal: 2+ left PT pulse intact strength in the left ankle the left knee and the left hip sensation is grossly intact pain originates in the buttock and tracks down along with distribution of the sciatic nerve Neurologic: Awake, alert, no obvious deficits, moving all extremities Psychiatric: Appropriate, cooperative Course - Vital Signs Last Recorded V/S: Last Vital Signs Temp 96.5 F L 12/22/20 07:30 Pulse 69 12/22/20 10:26 Resp 18 12/22/20 10:26 BP 137/85 12/22/20 10:26 Pulse Ox 96 12/22/20 10:26 - Orders/Labs/Meds Meds: Medications Discontinued Medications Generic Name Dose Route Start Last Admin Trade Name Lauri PRN Reason Stop Dose Admin Diazepam 5 mg 12/22/20 07:35 12/22/20 07:40 Diazepam 5 Mg Tab PO 12/22/20 07:36 5 mg ONETIME ONE Administration Ketorolac Tromethamine 30 mg 12/22/20 07:35 12/22/20 07:40 Ketorolac 30 Mg/Ml Sdv IM 12/22/20 07:36 30 mg ONETIME ONE Administration Morphine Sulfate 4 mg 12/22/20 09:15 12/22/20 09:37 Morphine 4 Mg/Ml Syringe IM 12/22/20 09:16 4 mg ONETIME ONE Administration Morphine Sulfate 4 mg 12/22/20 09:30 12/22/20 09:40 Morphine 4 Mg/Ml Vial IV 12/22/20 09:31 Not Given ONETIME ONE Morphine Sulfate 4 mg 12/22/20 10:09 12/22/20 10:25 Morphine 4 Mg/Ml Syringe IM 12/22/20 10:10 4 mg ONETIME ONE Administration Morphine Sulfate 4 mg 12/22/20 10:30 Morphine 4 Mg/Ml Vial IV 12/22/20 10:31 ONETIME ONE Morphine Sulfate Confirm 12/22/20 10:18 12/22/20 10:26 Morphine 4 Mg/Ml Vial Administered 12/22/20 10:19 Not Given Dose 4 mg .ROUTE .STK-MED ONE Departure - Departure Time of Disposition: 10:59 Disposition: Home, Self-Care 01 Condition: Good Clinical Impression: Sciatica - Discharge Information *PRESCRIPTION DRUG MONITORING PROGRAM REVIEWED*: Not Applicable *COPY OF PRESCRIPTION DRUG MONITORING REPORT IN PATIENT DIANE: Not Applicable Instructions: Sciatica Referrals: Fortunato Dominguez MD [Primary Care Provider] - Forms: ED Department Discharge Additional Instructions: I encourage you to follow-up with Dr. Dominguez to explore what other options may be available to help with your sciatica. The following information is given to patients seen in the emergency department who are being discharged to home. This information is to outline your options for follow-up care. We provide all patients seen in our emergency department with a follow-up referral. The need for follow-up, as well as the timing and circumstances, are variable depending upon the specifics of your emergency department visit. If you don't have a primary care physician on staff, we will provide you with a referral. We always advise you to contact your personal physician following an emergency department visit to inform them of the circumstance of the visit and for follow-up with them and/or the need for any referrals to a consulting specialist. The emergency department will also refer you to a specialist when appropriate. This referral assures that you have the opportunity for follow-up care with a specialist. All of these measure are taken in an effort to provide you with optimal care, which includes your follow-up. Under all circumstances we always encourage you to contact your private physician who remains a resource for coordinating your care. When calling for follow-up care, please make the office aware that this follow-up is from your recent emergency room visit. If for any reason you are refused follow-up, please contact the [facility] Emergency Department at and asked to speak to the emergency department charge nurse. Sepsis Event Note (ED) - Evaluation Sepsis Screening Result: No Definite Risk - Focused Exam Vital Signs: Vital Signs Temp Pulse Resp BP Pulse Ox 12/22/20 10:26 69 18 137/85 96 12/22/20 07:56 86 140/69 94 L 12/22/20 07:30 96.5 F L 114 H 22 H 144/73 H 94 L - Assessment/Plan Assessment:: 85-year-old male presenting with worsening of chronic sciatica. No findings of midline back pain nothing suggest cord compression or cauda equina nothing suggest epidural abscess or discitis or osteomyelitis. No history of recent falls that led to a worsening of the pain no negation for imaging at this time. Patient and family deny prior history of low insufficiency we will give a dose of Toradol here. We will trial Valium as a muscle relaxant to see if combination of these 2 helps his pain if not shot of morphine could be provided. However given his age and hoping to avoid narcotics. 0915: Pt's gait has improved somewhat. However, pain remains similar, IM morphine ordered. 1058: pain improved after 2 rounds of morphine. Pt able to ambulate. Importance of f/u with PCP discussed and understood.
[2020-12-22] MEDS ORDERED: Morphine 4 MG/ML Syringe IM ONE ×2 (09:15→10:09)
[2020-12-22] MEDS ORDERED: Morphine 4 MG/ML VIAL IV ONE ×2 (09:30→10:30)
[2020-12-22] MEDS ORDERED: Morphine 4 MG/ML VIAL ONE (10:18)
[2020-12-22 10:27] VITALS: BP 137/85
[2020-12-22 11:01] VITALS: PULSE 67
== END 2020-12-22 11:02 | disposition home or self-care (01) ==
LOC: MW.ED 07:08
DX: M54.32 Sciatica, left side (principal); E78.00 Pure hypercholesterolemia, unspecified; I10 Essential (primary) hypertension; J44.9 Chronic obstructive pulmonary disease, unspecified; E11.9 Type 2 diabetes mellitus without complications; E03.9 Hypothyroidism, unspecified; E66.9 Obesity, unspecified; Z68.39 Body mass index [BMI] 39.0-39.9, adult; Z79.4 Long term (current) use of insulin; Z79.899 Other long term (current) drug therapy
CPT/HCPCS: 96372; 99283; A9270; J1885; J2270

== ENCOUNTER 2020-12-23 07:29 | Emergency (ER) | payer MEDICARE ==
[2020-12-23] MEDS ORDERED: Lidocaine 5% 700 MG Patch TRDERM ONE (08:04)
[2020-12-23] MEDS ORDERED: Morphine 4 MG/ML Syringe IM ONE ×2 (08:05→09:48)
--- NOTE | 2020-12-23 08:08 | EDM.PDOC ---
ED HPI GENERAL MEDICAL PROBLEM - General Chief Complaint: Back Pain or Injury Stated Complaint: PAIN IN HIP AND BACK Time Seen by Provider: 12/23/20 07:35 - History of Present Illness INITIAL COMMENTS - FREE TEXT/NARRATIVE: 85-year-old male presenting with persistent left hip pain radiating into the left leg. Patient was seen for this complaint approximately 24 hours ago. He has a longstanding history of sciatica. Epidural steroid injections of have been in the past but led to minimal relief and significant hyperglycemic problems. He is on gabapentin and tramadol chronically. When he was seen yesterday he was given Toradol and Valium with no improvement followed by morphine 4 mg IM x2 which led to good relief. He was subsequently discharged. He did well through the day had some minimal pain returned starting around 9 PM when he went to bed the pain gradually worsened overnight and again became severe this morning. No new fall or injury but patient and daughter do report that he fell 2 weeks ago forward onto his knees he did not have any worsening of his back pain acutely at that time but patient and family concerned about the possibility of an occult injury from that fall. No urinary symptoms no abdomin al symptoms no chest pain shortness of breath or nausea. Pain currently severe. Back Pain Score (Numeric/FACES): 10 - Related Data Allergies Allergy/AdvReac Type Severity Reaction Status Date / Time No Known Allergies Allergy Verified 12/23/20 07:37 Home Meds: Home Meds Insulin Glarg,Human.Rec.Analog [LantUS Solostar] 68 unit SQ BEDTIME 08/28/15 [History] Insulin Lispro [HumaLOG] See Protocol SQ TID MDD 100 units 08/28/15 [History] Levothyroxine Sodium 50 mcg PO DAILY 08/28/15 [History] Ramipril 10 mg PO DAILY 08/28/15 [History] atorvaSTATin Calcium [Atorvastatin Calcium] 40 mg PO DAILY 08/28/15 [History] sitaGLIPtin Phos/Metformin HCl [Janumet 50-1,000 MG] 1 each PO BID 08/28/15 [H istory] Albuterol Sulfate [Proair Hfa] 2 puff INH Q4HR PRN 12/04/19 [History] Colesevelam [Welchol] 3 tab PO BID 12/04/19 [History] cilostazoL [Cilostazol] 1 tab PO BIDMEALS 12/04/19 [History] Iron Polysaccharide Complex [Polysaccharide Iron] 150 mg PO DAILY #60 capsule 12/06/19 [Rx] traMADol [Ultram] 50 mg PO BID 06/15/20 [History] Empagliflozin [Jardiance] 10 mg PO 12/23/20 [History] Gabapentin [Neurontin] 100 mg PO BID 12/23/20 [History] Lidocaine 5% [Lidoderm 5%] 1 patch TOP DAILY 14 Days #14 patch 12/23/20 [Rx] Past Medical History - Past Health History Medical/Surgical History: Denies Medical/Surgical History HEENT History: Reports: Hard of Hearing Other HEENT History: wears glasses Cardiovascular History: Reports: High Cholesterol, Hypertension Respiratory History: Reports: COPD, Sleep Apnea, SOB Other Respiratory History: uses a CPAP Gastrointestinal History: Reports: Colon Polyp Genitourinary History: Reports: BPH Musculoskeletal History: Reports: None Neurological History: Reports: None Psychiatric History: Reports: None Endocrine/Metabolic History: Reports: Diabetes, Type II, Hypothyroidism, Obesity/BMI 30+ Hematologic History: Reports: Anemia Immunologic History: Reports: None Oncologic (Cancer) History: Reports: None Dermatologic History: Reports: None - Infectious Disease History Infectious Disease History: Reports: Chicken Pox, Measles - Past Surgical History Head Surgeries/Procedures: Reports: None HEENT Surgical History: Reports: None Cardiovascular Surgical History: Reports: None Respiratory Surgical History: Reports: None GI Surgical History: Reports: Colonoscopy Male Surgical History: Reports: Circumcision, TURP-Transurethral Resection of Prostate Endocrine Surgical History: Reports: None Neurological Surgical History: Reports: Laminectomy Musculoskeletal Surgical History: Reports: None Oncologic Surgical History: Reports: None Dermatological Surgical History: Reports: None Social & Family History - Family History Family Medical History: No Pertinent Family History - Tobacco Use Tobacco Use Status *Q: Former Tobacco User Used Tobacco, but Quit: Yes Month/Year Tobacco Last Used: 15 years ago - Caffeine Use Caffeine Use: Reports: None ED ROS GENERAL - Review of Systems Review Of Systems: See Below Free Text/Narrative/Comment: General: No fever. Respiratory: No shortness of breath. Cardiac: No chest pain. Gastrointestinal: No nausea, vomiting or abdominal pain. Musculoskeletal: Per HPI Neurologic: No headache. ED EXAM, GENERAL - Physical Exam Exam: See Below Free Text/Narrative:: General Appearance: No acute distress, appears comfortable HEENT: Normocephalic/atraumatic, sclera anicteric, mucous membranes moist Neck: Normal range of motion Chest and Lungs: Normal work of breathing Cardiovascular: Intact distal perfusion Musculoskeletal: No edema or tenderness Neurologic: Awake, alert, no obvious deficits, moving all extremities Psychiatric: Appropriate, cooperative Course - Vital Signs Last Recorded V/S: Last Vital Signs Temp 97.6 F 12/23/20 07:39 Pulse 96 12/23/20 09:30 Resp 17 12/23/20 07:39 BP 155/85 H 12/23/20 09:30 Pulse Ox 96 12/23/20 09:30 - Orders/Labs/Meds Meds: Medications Discontinued Medications Generic Name Dose Route Start Last Admin Trade Name Freq PRN Reason Stop Dose Admin Lidocaine 700 mg 12/23/20 08:04 12/23/20 08:18 Lidocaine 5% 700 Mg Patch TRDERM 12/23/20 08:05 700 mg ONETIME ONE Administration Morphine Sulfate 4 mg 12/23/20 08:05 12/23/20 08:18 Morphine 4 Mg/Ml Syringe IM 12/23/20 08:06 4 mg ONETIME ONE Administration Morphine Sulfate 4 mg 12/23/20 08:15 12/23/20 08:19 Morphine 4 Mg/Ml Vial IM 12/23/20 08:16 Not Given ONETIME ONE Departure - Departure Time of Disposition: 09:46 Disposition: Home, Self-Care 01 Condition: Good Clinical Impression: Sciatica - Discharge Information *PRESCRIPTION DRUG MONITORING PROGRAM REVIEWED*: Not Applicable *COPY OF PRESCRIPTION DRUG MONITORING REPORT IN PATIENT DIANE: Not Applicable Prescriptions: Lidocaine 5% [Lidoderm 5%] 1 patch TOP DAILY 14 Days #14 patch Instructions: Sciatica Referrals: Fortunato Dominguez MD [Primary Care Provider] - Forms: ED Department Discharge Additional Instructions: My hope is that adding the lidocaine patch in addition to your other prescribed medications will help take the edge off your pain. Please be sure to keep your appointment on Tuesday with your doctors office. The following information is given to patients seen in the emergency department who are being discharged to home. This information is to outline your options for follow-up care. We provide all patients seen in our emergency department with a follow-up referral. The need for follow-up, as well as the timing and circumstances, are variable depending upon the specifics of your emergency department visit. If you don't have a primary care physician on staff, we will provide you with a referral. We always advise you to contact your personal physician following an emergency department visit to inform them of the circumstance of the visit and for follow-up with them and/or the need for any referrals to a consulting specialist. The emergency department will also refer you to a specialist when appropriate. This referral assures that you have the opportunity for follow-up care with a specialist. All of these measure are taken in an effort to provide you with optimal care, which includes your follow-up. Under all circumstances we always encourage you to contact your private physician who remains a resource for coordinating your care. When calling for follow-up care, please make the office aware that this follow-up is from your recent emergency room visit. If for any reason you are refused follow-up, please contact the [facility] Emergency Department at and asked to speak to the emergency department charge nurse. Sepsis Event Note (ED) - Evaluation Sepsis Screening Result: No Definite Risk - Focused Exam Vital Signs: Vital Signs Temp Pulse Resp BP Pulse Ox 12/23/20 09:30 96 155/85 H 96 12/23/20 08:28 94 160/90 H 95 12/23/20 07:39 97.6 F 96 17 141/59 H 95 - Assessment/Plan Assessment:: 85-year-old male presenting with signs and symptoms most consistent with persistent sciatica. Will give 4 mg of morphine IM for symptom management will also add a Lidoderm patch. Given fall 2 weeks ago and patient and family concern x-rays of the left hip and lumbar spine of been ordered to assess for any occult fracture. No findings that would suggest intra-abdominal pathology that suggest discitis or osteomyelitis of the spine nothing suggest AAA or UTI. 0945: X-rays without acute process. Patient continues to be without any symptoms of cord compression or cauda equina. Patient's pain is improved somewhat to a 7 out of 10 will give an additional dose of morphine. We will add Lidoderm patches as mentioned above. Patient has an appointment with his primary care doctor's office on Tuesday.
[2020-12-23] MEDS ORDERED: Morphine 4 MG/ML VIAL IV ONE (08:15)
[2020-12-23] MEDS ORDERED: Morphine 4 MG/ML VIAL IM ONE (08:15)
--- NOTE | 2020-12-23 09:11 | CR ---
INDICATION: Fall 2 weeks ago, left leg pain. TECHNIQUE: Lumbar spine, 3 views. COMPARISON: Lumbar spine radiographs 07/10/2020. FINDINGS: There are 5 lumbar type vertebral bodies. Mild left convex lumbar curve. No acute fracture identified. Vertebral body heights are well maintained. Stable minimal retrolisthesis of L3 on L4. Multilevel endplate spurring and lower lumbar facet arthropathy. No significant disc space narrowing. The sacroiliac joints are normal in appearance. Pelvic phleboliths. Soft tissues are unremarkable. IMPRESSION: 1. No acute findings. 2. Mild left convex lumbar curve. 3. Stable minimal retrolisthesis of L3 on L4. Dictated by Lavern Lehman MD @ 12/23/2020 9:10:05 AM (Electronically Signed)
--- NOTE | 2020-12-23 09:13 | CR ---
Indication: Fall 2 weeks ago, left leg pain. Technique: Pelvis and left hip 2 views. Comparison: Left hip radiographs 02/02/2010. Findings: No acute fracture or dislocation. No significant degenerative changes of the hips. The sacroiliac joints are normal in appearance. Pelvic phleboliths. Soft tissues are unremarkable. Impression: No acute findings. Dictated by Lavern Lehman MD @ 12/23/2020 9:12:54 AM (Electronically Signed)
[2020-12-23 10:32] VITALS: BP 127/59; PULSE 77
== END 2020-12-23 10:32 | disposition home or self-care (01) ==
LOC: MW.ED 07:29
DX: M54.32 Sciatica, left side (principal); E78.00 Pure hypercholesterolemia, unspecified; I10 Essential (primary) hypertension; J44.9 Chronic obstructive pulmonary disease, unspecified; E11.9 Type 2 diabetes mellitus without complications; E03.9 Hypothyroidism, unspecified; E66.9 Obesity, unspecified; Z68.30 Body mass index [BMI] 30.0-30.9, adult; Z79.4 Long term (current) use of insulin; Z79.899 Other long term (current) drug therapy; Z87.891 Personal history of nicotine dependence
CPT/HCPCS: 72100; 73501; 96372; 99283; A9270; J2270

== ENCOUNTER 2020-12-24 07:14 | Emergency (ER) | payer MEDICARE ==
--- NOTE | 2020-12-24 07:27 | EDM.PDOC ---
ED HPI GENERAL MEDICAL PROBLEM - General Stated Complaint: PAIN IN LEFT HIP AND BACK Time Seen by Provider: 12/24/20 07:15 Source of Information: Reports: Patient History Limitations: Reports: No Limitations - History of Present Illness INITIAL COMMENTS - FREE TEXT/NARRATIVE: 85-year-old male past medical history sciatica presents for left sided sciatic pain. This is patient's third ER visit in the last 3 days. He initially responded well to morphine, Toradol, Valium. He does have an outpatient prescription for gabapentin and tramadol. He has an appointment with his primary care physician on Tuesday. He gets some relief in the ER with morphine but pain returns at home. He does have a norco rx filled yesterday and has taken it twice which initially helped but his 3:30AM dose did not seem to help. lower back Pain Score (Numeric/FACES): 10 - Related Data Allergies Allergy/AdvReac Type Severity Reaction Status Date / Time No Known Allergies Allergy Verified 12/24/20 08:01 Home Meds: Home Meds Insulin Glarg,Human.Rec.Analog [LantUS Solostar] 68 unit SQ BEDTIME 08/28/15 [History] Insulin Lispro [HumaLOG] See Protocol SQ TID MDD 100 units 08/28/15 [History] Levothyroxine Sodium 50 mcg PO DAILY 08/28/15 [History] Ramipril 10 mg PO DAILY 08/28/15 [History] atorvaSTATin Calcium [Atorvastatin Calcium] 40 mg PO DAILY 08/28/15 [History] sitaGLIPtin Phos/Metformin HCl [Janumet 50-1,000 MG] 1 each PO BID 08/28/15 [History] Albuterol Sulfate [Proair Hfa] 2 puff INH Q4HR PRN 12/04/19 [History] Colesevelam [Welchol] 3 tab PO BID 12/04/19 [History] cilostazoL [Cilostazol] 1 tab PO BIDMEALS 12/04/19 [History] Iron Polysaccharide Complex [Polysaccharide Iron] 150 mg PO DAILY #60 capsule 12/06/19 [Rx] traMADol [Ultram] 50 mg PO BID 06/15/20 [History] Empagliflozin [Jardiance] 10 mg PO ASDIRECTED 12/23/20 [History] Gabapentin [Neurontin] 100 mg PO BID 12/23/20 [History] Hydrocodone/Acetaminophen [HYDROcodone-Acetaminophen 5-325 MG] 1 each PO TID PRN #12 tab 12/23/20 [Rx] Lidocaine 5% [Lidoderm 5%] 1 patch TOP DAILY 14 Days #14 patch 12/23/20 [Rx] Past Medical History - Past Health History Medical/Surgical History: Denies Medical/Surgical History HEENT History: Reports: Hard of Hearing Other HEENT History: wears glasses Cardiovascular History: Reports: High Cholesterol, Hypertension Respiratory History: Reports: COPD, Sleep Apnea, SOB Other Respiratory History: uses a CPAP Gastrointestinal History: Reports: Colon Polyp Genitourinary History: Reports: BPH Musculoskeletal History: Reports: None Neurological History: Reports: None Psychiatric History: Reports: None Endocrine/Metabolic History: Reports: Diabetes, Type II, Hypothyroidism, Obesity/BMI 30+ Hematologic History: Reports: Anemia Immunologic History: Reports: None Oncologic (Cancer) History: Reports: None Dermatologic History: Reports: None - Infectious Disease History Infectious Disease History: Reports: Chicken Pox, Measles - Past Surgical History Head Surgeries/Procedures: Reports: None HEENT Surgical History: Reports: None Cardiovascular Surgical History: Reports: None Respiratory Surgical History: Reports: None GI Surgical History: Reports: Colonoscopy Male Surgical History: Reports: Circumcision, TURP-Transurethral Resection of Prostate Endocrine Surgical History: Reports: None Neurological Surgical History: Reports: Laminectomy Musculoskeletal Surgical History: Reports: None Oncologic Surgical History: Reports: None Dermatological Surgical History: Reports: None Social & Family History - Family History Family Medical History: No Pertinent Family History - Caffeine Use Caffeine Use: Reports: None ED ROS GENERAL - Review of Systems Review Of Systems: Comprehensive ROS is negative, except as noted in HPI. ED EXAM, GENERAL - Physical Exam Exam: See Below Exam Limited By: No Limitations General Appearance: Alert, WD/WN, No Apparent Distress Ears: Hearing Grossly Normal Throat/Mouth: Normal Voice, No Airway Compromise Head: Atraumatic, Normocephalic Respiratory/Chest: No Respiratory Distress, Lungs Clear, Normal Breath Sounds, No Accessory Muscle Use Cardiovascular: Normal Peripheral Pulses, Regular Rate, Rhythm Back Exam: Normal Inspection Extremities: Normal Inspection Neurological: Alert, Normal Cognition Psychiatric: Normal Affect, Normal Mood Skin Exam: Warm, Dry, Intact, Normal Color Course - Vital Signs Last Recorded V/S: Last Vital Signs Temp 97.4 F 12/24/20 07:56 Pulse 104 H 12/24/20 07:56 Resp 20 12/24/20 07:56 BP 175/95 H 12/24/20 07:56 Pulse Ox 95 12/24/20 07:56 - Orders/Labs/Meds Meds: Medications Discontinued Medications Generic Name Dose Route Start Last Admin Trade Name Lauri PRN Reason Stop Dose Admin Diazepam 2 mg 12/24/20 07:59 12/24/20 08:16 Diazepam 2 Mg Tab PO 12/24/20 08:00 2 mg ONETIME ONE Administration Ketorolac Tromethamine 30 mg 12/24/20 07:59 12/24/20 08:15 Ketorolac 30 Mg/Ml Sdv IM 12/24/20 08:00 30 mg ONETIME ONE Administration Morphine Sulfate 6 mg 12/24/20 07:59 12/24/20 08:16 Morphine 4 Mg/Ml Vial IM 12/24/20 08:00 6 mg ONETIME ONE Administration - Re-Assessments/Exams Free Text/Narrative Re-Assessment/Exam: 12/24/20 08:02 We will treat patient's pain. Will give outpatient MRI order although I discussed with patient's daughter that I am not certain how this will work with billing. Results to be forwarded to PMD. 12/24/20 08:47 Patient is feeling much better. MRI was ordered with results to be forwarded to Dr. Dominguez. Departure - Departure Time of Disposition: 08:47 Disposition: Home, Self-Care 01 Condition: Good Clinical Impression: Sciatica Qualifiers: Laterality: left Qualified Code(s): M54.32 - Sciatica, left side - Discharge Information Instructions: Sciatica Referrals: Fortunato Dominguez MD [Primary Care Provider] - Additional Instructions: You were seen in the emergency department for sciatic pain. You were given medications for pain. I also sent a prescription for a muscle relaxant called Flexeril that you can try with the narcotic prescription that was prescribed yesterday. I wrote an outpatient order for an MRI with results to be forwarded to your primary care physician. The following information is given to patients seen in the emergency department who are being discharged to home. This information is to outline your options for follow-up care. We provide all patients seen in our emergency department with a follow-up referral. The need for follow-up, as well as the timing and circumstances, are variable depending upon the specifics of your emergency department visit. If you don't have a primary care physician on staff, we will provide you with a referral. We always advise you to contact your personal physician following an emergency department visit to inform them of the circumstance of the visit and for follow-up with them and/or the need for any referrals to a consulting specialist. The emergency department will also refer you to a specialist when appropriate. This referral assures that you have the opportunity for follow-up care with a specialist. All of these measure are taken in an effort to provide you with optimal care, which includes your follow-up. Under all circumstances we always encourage you to contact your private physician who remains a resource for coordinating your care. When calling for follow-up care, please make the office aware that this follow-up is from your recent emergency room visit. If for any reason you are refused follow-up, please contact the [facility] Emergency Department at and asked to speak to the emergency department charge nurse. Please follow up with your primary care physician. If you do not have a primary care physician, see below: [facility] [address] [place] [id number] [facility] [address] [place] [id number] [facility] [address] [place] [id number] Sepsis Event Note (ED) - Focused Exam Vital Signs: Vital Signs Temp Pulse Resp BP Pulse Ox 12/24/20 07:56 97.4 F 104 H 20 175/95 H 95
[2020-12-24] MEDS ORDERED: Ketorolac 30 MG/ML SDV IM ONE (07:59)
[2020-12-24] MEDS ORDERED: Morphine 4 MG/ML VIAL IM ONE (07:59)
[2020-12-24] MEDS ORDERED: Diazepam 2 MG Tab PO ONE (07:59)
[2020-12-24 09:06] VITALS: BP 132/66; PULSE 74
== END 2020-12-24 09:07 | disposition home or self-care (01) ==
LOC: MW.ED 07:14
DX: M54.32 Sciatica, left side (principal); E78.00 Pure hypercholesterolemia, unspecified; I10 Essential (primary) hypertension; J44.9 Chronic obstructive pulmonary disease, unspecified; E11.9 Type 2 diabetes mellitus without complications; E03.9 Hypothyroidism, unspecified; E66.9 Obesity, unspecified; Z68.39 Body mass index [BMI] 39.0-39.9, adult; Z79.4 Long term (current) use of insulin; Z79.899 Other long term (current) drug therapy
CPT/HCPCS: 96372; 99283; A9270; J1885; J2270

== ENCOUNTER 2021-08-15 16:39 | Inpatient (IN) | payer MEDICARE ==
[2021-08-15] MEDS ORDERED: Lactated Ringers 1,000 ML IV STA (17:27)
[2021-08-15] MEDS ORDERED: Ketorolac 30 MG/ML SDV IM STA (17:28)
[2021-08-15] MEDS ORDERED: Ketorolac 30 MG/ML SDV IVPUSH STA (17:55)
[2021-08-15 18:08] LABS: CARBON DIOXIDE,CO2 23.3 mmol/L (21.0-32.0); POTASSIUM,K 4.7 mmol/L (3.5-5.1)
[2021-08-15 18:22] LABS: CORONAVIRUS COVID-19 NAA POSITIVE (NEGATIVE); INFLUENZA A NAA NEGATIVE (NEGATIVE); INFLUENZA B NAA NEGATIVE (NEGATIVE)
[2021-08-15] MEDS ORDERED: Dexamethasone 4 MG/ML SDV IVPUSH STA (18:56)
[2021-08-15] MEDS ORDERED: REMDESIVIR 200 MG in Sodium Chloride 0.9% 250 ML IV ONE (18:57)
[2021-08-15] MEDS ORDERED: Non-Formulary Medication 1 Each (Albuterol 8.5 GM Hfa.Aer.Ad) INH PRN (20:11)
[2021-08-15] MEDS ORDERED: Non-Formulary Medication 1 Each (Hydrocodone/Acetaminophen 1 EACH Tablet) PO PRN (20:11)
[2021-08-15] MEDS ORDERED: 50% Dextrose in Water 50 ML Syringe IVPUSH PRN (20:26)
[2021-08-15] MEDS ORDERED: Glucagon,Human Recombinant 1 MG Vial IM PRN (20:26)
[2021-08-15] MEDS ORDERED: Dexamethasone 4 MG Tab PO SCH (20:30)
[2021-08-15] MEDS ORDERED: Insulin Aspart 100 Units/ML 3 ML Pen SUBCUT ONE (20:30)
[2021-08-15] MEDS: Enoxaparin 40 MG/0.4 ML Syringe SUBCUT SCH (20:48)
[2021-08-15] MEDS: Gabapentin 100 MG Cap PO SCH (20:49)
[2021-08-15] MEDS ORDERED: Non-Formulary Medication 1 Each (Insulin Glarg,Human.Rec.Analog 100 UNITS/ML Pen) SQ SCH (21:00)
[2021-08-15] MEDS ORDERED: Insulin Glargine,Hum.Rec.Anlog 100 UNIT/ML 3 ML Pen ONE (22:24)
[2021-08-15] MEDS: Cyclobenzaprine 10 MG Tab PO SCH (22:29)
[2021-08-15] MEDS: Colesevelam 625 MG Tab PO SCH (22:56)
[2021-08-15] MEDS: Insulin Glargine,Hum.Rec.Anlog 100 UNIT/ML 3 ML Pen SUBCUT SCH (22:56)
[2021-08-16] MEDS: Cyclobenzaprine 10 MG Tab PO SCH ×3 (06:06→21:24)
[2021-08-16 07:51] LABS: CARBON DIOXIDE,CO2 23.6 mmol/L (21.0-32.0); POTASSIUM,K 4.6 mmol/L (3.5-5.1)
[2021-08-16] MEDS: Insulin Aspart 100 Units/ML 3 ML Pen SUBCUT SCH ×3 (08:53→18:00)
[2021-08-16] MEDS: atorvaSTATin 40 MG Tab PO SCH (08:54)
[2021-08-16] MEDS: Gabapentin 100 MG Cap PO SCH ×2 (08:55→21:18)
[2021-08-16] MEDS: Levothyroxine 50 MCG Tab PO SCH (08:55)
[2021-08-16] MEDS ORDERED: Non-Formulary Medication 1 Each (Ramipril 5 MG Capsule) PO SCH (09:00)
[2021-08-16] MEDS: Fluticasone/Salmeterol 100-50 MCG Inhalation Powder 14/Diskus INH SCH ×2 (12:40→21:16)
[2021-08-16] MEDS: CILOSTAZOL 100 MG PO SCH ×2 (12:40→17:05)
[2021-08-16] MEDS: Colesevelam 625 MG Tab PO SCH (12:41)
[2021-08-16] MEDS ORDERED: RAMIPRIL 5 MG PO SCH (17:30)
[2021-08-16] MEDS ORDERED: CILOSTAZOL 100 MG PO SCH (19:41)
[2021-08-16] MEDS ORDERED: REMDESIVIR 100 MG in Sodium Chloride 0.9% 100 ML IV SCH (20:15)
[2021-08-16] MEDS: Enoxaparin 40 MG/0.4 ML Syringe SUBCUT SCH (21:14)
[2021-08-16] MEDS: Insulin Glargine,Hum.Rec.Anlog 100 UNIT/ML 3 ML Pen SUBCUT SCH (21:20)
[2021-08-16] MEDS: COLESEVELAM 625 MG PO SCH (21:23)
[2021-08-17] MEDS: Cyclobenzaprine 10 MG Tab PO SCH (05:57)
[2021-08-17 06:37] LABS: CARBON DIOXIDE,CO2 23.7 mmol/L (21.0-32.0); POTASSIUM,K 4.4 mmol/L (3.5-5.1)
[2021-08-17] MEDS: Insulin Aspart 100 Units/ML 3 ML Pen SUBCUT SCH ×2 (08:00→12:14)
[2021-08-17] MEDS: Gabapentin 100 MG Cap PO SCH (08:01)
[2021-08-17] MEDS: atorvaSTATin 40 MG Tab PO SCH (08:02)
[2021-08-17] MEDS: Levothyroxine 50 MCG Tab PO SCH (08:03)
[2021-08-17] MEDS: Fluticasone/Salmeterol 100-50 MCG Inhalation Powder 14/Diskus INH SCH (08:03)
[2021-08-17] MEDS: COLESEVELAM 625 MG PO SCH (08:04)
[2021-08-17] MEDS ORDERED: Albuterol 8 GM Inhaler INH PRN (08:45)
[2021-08-17 11:51] VITALS: BP 144/64; PULSE 71
[2021-08-17] MEDS ORDERED: Gabapentin 300 MG Cap PO SCH (21:00)
[2021-08-18] MEDS ORDERED: Levothyroxine 50 MCG Tab PO SCH (07:30)
== END 2021-08-17 14:45 | disposition home health service (06) | DRG 177 ==
LOC: MW.ED 16:39 → MW.MS 18:55
PROVIDERS: ADMIT Internal Medicine; ATTEND Internal Medicine
PROC: XW033E5 Introduction of Remdesivir Anti-infective into Peripheral Vein, Percutaneous Approach, New Technology Group 5 (ICD-10-PCS; principal; 2021-08-15)
PROC: 3E0DX3Z Introduction of Anti-inflammatory into Mouth and Pharynx, External Approach (ICD-10-PCS; 2021-08-15)
DX: U07.1 COVID-19 (principal); R09.02 Hypoxemia; J96.01 Acute respiratory failure with hypoxia; R53.1 Weakness; N17.9 Acute kidney failure, unspecified; Z68.41 Body mass index [BMI] 40.0-44.9, adult; I10 Essential (primary) hypertension; E11.9 Type 2 diabetes mellitus without complications; E78.5 Hyperlipidemia, unspecified; E03.9 Hypothyroidism, unspecified; J44.9 Chronic obstructive pulmonary disease, unspecified; G62.9 Polyneuropathy, unspecified; G47.33 Obstructive sleep apnea (adult) (pediatric); H91.90 Unspecified hearing loss, unspecified ear; E78.00 Pure hypercholesterolemia, unspecified; H54.7 Unspecified visual loss; N40.0 Benign prostatic hyperplasia without lower urinary tract symptoms; E66.9 Obesity, unspecified; D64.9 Anemia, unspecified; Z79.4 Long term (current) use of insulin; Z79.899 Other long term (current) drug therapy; Z86.010 Personal history of colon polyps; Z86.19 Personal history of other infectious and parasitic diseases; Z79.890 Hormone replacement therapy; Z98.1 Arthrodesis status; Z87.891 Personal history of nicotine dependence
CPT/HCPCS: 0240U; 36415; 71045; 80053; 81003; 82009; 82248; 82803; 82947; 83605; 83735; 85025; 85610; 87040; 87651; 93005; 96361; 96374; 99221; 99231; 99238; 99291; A9270-GY; J1100; J1650; J1815-GY; J1885; J7050; J7120; J8540

== ENCOUNTER 2022-05-14 20:13 | Inpatient (IN) | payer MEDICARE ==
[2022-05-14] MEDS ORDERED: Sodium Chloride 0.9% 10 ML Syringe FLUSH PRN (20:22)
[2022-05-14] MEDS ORDERED: Sodium Chloride 0.9% 2.5 ML Syringe FLUSH PRN (20:22)
[2022-05-14] MEDS ORDERED: Acetaminophen 500 MG Tab PO ONE (20:39)
[2022-05-14] MEDS ORDERED: Sodium Chloride 0.9% 1,000 ML IV ONE ×2 (20:47→21:32)
[2022-05-14] MEDS ORDERED: Albuterol/Ipratropium 3.0-0.5 MG/3 ML Neb Soln NEB ONE (20:52)
[2022-05-14] MEDS ORDERED: Cefepime 2 GM in Premix Bag 1 BAG IV ONE (21:15)
[2022-05-14 21:17] LABS: CARBON DIOXIDE,CO2 22.9 mmol/L (21.0-32.0); POTASSIUM,K 4.6 mmol/L (3.5-5.1)
[2022-05-14 21:25] LABS: CORONAVIRUS COVID-19 NAA NEGATIVE (NEGATIVE); INFLUENZA A NAA NEGATIVE (NEGATIVE); INFLUENZA B NAA NEGATIVE (NEGATIVE)
[2022-05-14] MEDS ORDERED: cefTRIAXone 1 GM in Sodium Chloride 0.9% 50 ML IV ONE (21:31)
[2022-05-14] MEDS ORDERED: Azithromycin 500 MG in Sodium Chloride 0.9% 250 ML IV ONE (21:31)
[2022-05-14] MEDS ORDERED: Iopamidol 755 MG/ML 500 ML Multipack Bottle IVPUSH ONE (21:55)
[2022-05-14] MEDS ORDERED: Alum Hydro/Mag Hydro/Simeth XS 15 ML, Lidocaine 2% 5 ML PO ONE ×2 (22:46)
[2022-05-14] MEDS ORDERED: cefTRIAXone 1 GM Vial ONE (23:23)
[2022-05-14] MEDS ORDERED: Sodium Chloride 0.9% 50 ML ONE (23:23)
[2022-05-15] MEDS ORDERED: 50% Dextrose in Water 50 ML Syringe IVPUSH PRN ×2 (00:48→10:42)
[2022-05-15] MEDS ORDERED: Glucagon,Human Recombinant 1 MG Vial IM PRN ×2 (00:48→10:42)
[2022-05-15] MEDS ORDERED: Azithromycin 500 MG in Sodium Chloride 0.9% 250 ML IV SCH (01:00)
[2022-05-15] MEDS: Albuterol/Ipratropium 3.0-0.5 MG/3 ML Neb Soln NEB SCH ×4 (05:32→23:09)
[2022-05-15] MEDS: Insulin Aspart 100 Units/ML 3 ML Pen SUBCUT SCH ×5 (07:49→16:54)
[2022-05-15 07:52] LABS: CARBON DIOXIDE,CO2 22.9 mmol/L (21.0-32.0); POTASSIUM,K 4.3 mmol/L (3.5-5.1)
[2022-05-15] MEDS: Cefepime 1 GM in Sodium Chloride 0.9% 50 ML IV SCH ×2 (09:16→20:51)
[2022-05-15] MEDS ORDERED: atorvaSTATin 40 MG Tab PO SCH (10:30)
[2022-05-15] MEDS: Colesevelam 625 MG Tab PO SCH ×2 (11:14→20:51)
[2022-05-15] MEDS: traMADol 50 MG Tab PO PRN ×2 (11:15→20:50)
[2022-05-15] MEDS: Levothyroxine 50 MCG Tab PO SCH (11:16)
[2022-05-15] MEDS: Enoxaparin 40 MG/0.4 ML Syringe SUBCUT SCH (11:16)
[2022-05-15] MEDS: Iron Polysaccharides Complex 150 MG Cap PO SCH ×2 (11:16→20:51)
[2022-05-15] MEDS: methylPREDNISolone Sodium Succinate 40 MG/1 ML SDV IVPUSH SCH (11:17)
[2022-05-15] MEDS: Fluticasone/Salmeterol 100-50 MCG Inhalation Powder 14/Diskus INH SCH ×2 (11:17→20:53)
[2022-05-15] MEDS ORDERED: Albuterol/Ipratropium 3.0-0.5 MG/3 ML Neb Soln NEB SCH (12:00)
[2022-05-15] MEDS: Gabapentin 300 MG Cap PO SCH ×2 (13:09→21:12)
[2022-05-15] MEDS: atorvaSTATin 40 MG Tab PO SCH (20:50)
[2022-05-15] MEDS: Azithromycin 500 MG in Sodium Chloride 0.9% 250 ML IV SCH (20:52)
[2022-05-15] MEDS ORDERED: Insulin Glargine,Hum.Rec.Anlog 100 UNIT/ML 3 ML Pen SUBCUT SCH (21:00)
[2022-05-15] MEDS: Insulin Glargine,Hum.Rec.Anlog 100 UNIT/ML 3 ML Pen SUBCUT SCH (21:11)
[2022-05-16] MEDS: Gabapentin 300 MG Cap PO SCH ×3 (06:41→21:02)
[2022-05-16] MEDS: Albuterol/Ipratropium 3.0-0.5 MG/3 ML Neb Soln NEB SCH (06:41)
[2022-05-16] MEDS: Levothyroxine 50 MCG Tab PO SCH (06:41)
[2022-05-16 06:49] LABS: CARBON DIOXIDE,CO2 19.3 mmol/L (21.0-32.0); POTASSIUM,K 4.6 mmol/L (3.5-5.1)
[2022-05-16] MEDS: Insulin Aspart 100 Units/ML 3 ML Pen SUBCUT SCH ×6 (08:03→16:43)
[2022-05-16] MEDS: Colesevelam 625 MG Tab PO SCH ×2 (08:46→21:02)
[2022-05-16] MEDS: Iron Polysaccharides Complex 150 MG Cap PO SCH ×2 (08:46→21:03)
[2022-05-16] MEDS: Furosemide 40 MG Tab PO SCH (08:46)
[2022-05-16] MEDS: traMADol 50 MG Tab PO PRN (08:47)
[2022-05-16] MEDS: Cefepime 1 GM in Sodium Chloride 0.9% 50 ML IV SCH ×2 (08:48→21:01)
[2022-05-16] MEDS: methylPREDNISolone Sodium Succinate 40 MG/1 ML SDV IVPUSH SCH (08:48)
[2022-05-16] MEDS: Fluticasone/Salmeterol 100-50 MCG Inhalation Powder 14/Diskus INH SCH ×2 (09:28→21:14)
[2022-05-16] MEDS: Enoxaparin 40 MG/0.4 ML Syringe SUBCUT SCH (11:47)
[2022-05-16] MEDS: Albuterol 0.083% 2.5 MG/3 ML Neb Soln INH SCH ×3 (12:55→23:12)
[2022-05-16] MEDS: Ipratropium 0.02% 0.5 MG/2.5 ML Neb Soln INH SCH ×3 (12:55→23:13)
[2022-05-16 19:02] LABS: BORDETELLA PARAPERT IS1001 Not Detected (Not Detected)
[2022-05-16] MEDS: atorvaSTATin 40 MG Tab PO SCH (21:02)
[2022-05-16] MEDS: Azithromycin 500 MG in Sodium Chloride 0.9% 250 ML IV SCH (21:15)
[2022-05-16] MEDS: Insulin Glargine,Hum.Rec.Anlog 100 UNIT/ML 3 ML Pen SUBCUT SCH (21:44)
[2022-05-16] MEDS ORDERED: Insulin Aspart 100 Units/ML 3 ML Pen SUBCUT ONE (22:53)
[2022-05-17] MEDS ORDERED: Insulin Aspart 100 Units/ML 3 ML Pen SUBCUT ONE ×5 (00:25→17:36)
[2022-05-17 06:38] LABS: CARBON DIOXIDE,CO2 21.1 mmol/L (21.0-32.0); POTASSIUM,K 4.6 mmol/L (3.5-5.1)
[2022-05-17] MEDS: Gabapentin 300 MG Cap PO SCH ×3 (06:46→21:49)
[2022-05-17] MEDS: Levothyroxine 50 MCG Tab PO SCH (06:46)
[2022-05-17] MEDS: Ipratropium 0.02% 0.5 MG/2.5 ML Neb Soln INH SCH ×3 (07:30→17:03)
[2022-05-17] MEDS: Albuterol 0.083% 2.5 MG/3 ML Neb Soln INH SCH ×3 (07:31→17:03)
[2022-05-17] MEDS ORDERED: Cefepime 2 GM in Sodium Chloride 0.9% 50 ML IV SCH ×2 (07:33→09:00)
[2022-05-17] MEDS: Insulin Aspart 100 Units/ML 3 ML Pen SUBCUT SCH ×6 (08:25→17:35)
[2022-05-17] MEDS: Iron Polysaccharides Complex 150 MG Cap PO SCH ×2 (08:28→21:49)
[2022-05-17] MEDS: Furosemide 40 MG Tab PO SCH (08:28)
[2022-05-17] MEDS: Fluticasone/Salmeterol 100-50 MCG Inhalation Powder 14/Diskus INH SCH ×2 (08:50→21:59)
[2022-05-17] MEDS: Enoxaparin 40 MG/0.4 ML Syringe SUBCUT SCH (11:33)
[2022-05-17] MEDS: Colesevelam 625 MG Tab PO SCH ×2 (11:33→21:48)
[2022-05-17] MEDS ORDERED: 50% Dextrose in Water 50 ML Syringe IVPUSH PRN (13:38)
[2022-05-17] MEDS ORDERED: Glucagon,Human Recombinant 1 MG Vial IM PRN (13:38)
[2022-05-17] MEDS: Cefdinir 300 MG Cap PO SCH (17:48)
[2022-05-17] MEDS ORDERED: Azithromycin 250 MG Tab PO SCH (19:00)
[2022-05-17] MEDS: atorvaSTATin 40 MG Tab PO SCH (21:49)
[2022-05-17] MEDS: Insulin Glargine,Hum.Rec.Anlog 100 UNIT/ML 3 ML Pen SUBCUT SCH (21:54)
[2022-05-18] MEDS: Albuterol 0.083% 2.5 MG/3 ML Neb Soln INH SCH ×2 (00:05→06:23)
[2022-05-18] MEDS: Ipratropium 0.02% 0.5 MG/2.5 ML Neb Soln INH SCH ×2 (00:06→06:23)
[2022-05-18] MEDS: Gabapentin 300 MG Cap PO SCH (06:22)
[2022-05-18] MEDS: Levothyroxine 50 MCG Tab PO SCH ×2 (06:23→08:08)
[2022-05-18] MEDS: Insulin Aspart 100 Units/ML 3 ML Pen SUBCUT SCH ×2 (07:55→07:56)
[2022-05-18] MEDS: Cefdinir 300 MG Cap PO SCH (08:01)
[2022-05-18] MEDS: Furosemide 40 MG Tab PO SCH (08:01)
[2022-05-18] MEDS: Iron Polysaccharides Complex 150 MG Cap PO SCH (08:01)
[2022-05-18] MEDS: Fluticasone/Salmeterol 100-50 MCG Inhalation Powder 14/Diskus INH SCH (08:03)
[2022-05-18 08:26] VITALS: BP 130/62; PULSE 103
[2022-05-18] MEDS: Colesevelam 625 MG Tab PO SCH (08:30)
== END 2022-05-18 11:55 | disposition home health service (06) | DRG 190 ==
LOC: MW.ED 20:13 → MW.MS 22:42 → OBSVTOIN 05-17 19:51 → MW.MS 05-17 19:52
PROVIDERS: ADMIT Internal Medicine; ATTEND Internal Medicine
DX: J44.0 Chronic obstructive pulmonary disease with (acute) lower respiratory infection (principal); J18.9 Pneumonia, unspecified organism; Z68.41 Body mass index [BMI] 40.0-44.9, adult; J44.1 Chronic obstructive pulmonary disease with (acute) exacerbation; H91.90 Unspecified hearing loss, unspecified ear; E78.00 Pure hypercholesterolemia, unspecified; R50.9 Fever, unspecified; E86.0 Dehydration; R53.1 Weakness; Z20.822 Contact with and (suspected) exposure to COVID-19; E11.65 Type 2 diabetes mellitus with hyperglycemia; J20.9 Acute bronchitis, unspecified; E11.40 Type 2 diabetes mellitus with diabetic neuropathy, unspecified; J44.9 Chronic obstructive pulmonary disease, unspecified; I10 Essential (primary) hypertension; D64.9 Anemia, unspecified; Z98.890 Other specified postprocedural states; E03.9 Hypothyroidism, unspecified; Z86.010 Personal history of colon polyps; E78.5 Hyperlipidemia, unspecified; Z79.51 Long term (current) use of inhaled steroids; G47.33 Obstructive sleep apnea (adult) (pediatric); E66.9 Obesity, unspecified; N40.0 Benign prostatic hyperplasia without lower urinary tract symptoms; Z79.4 Long term (current) use of insulin; Z79.899 Other long term (current) drug therapy
CPT/HCPCS: 0240U; 36415; 51701; 51798; 71045; 71260; 80048; 80053; 81001; 82803; 82947; 83605; 83735; 83880; 84145; 84484; 85025; 85610; 85730; 87040; 87486; 87581; 87633; 87798; 93005; 94640; 96361; 96365; 96366; 96367; 96372; 96375; 96376; 97161; 99285; 93010; 99222; 99232; 99238; 99284; A9270-GY; G0378; J0456; J0692; J0696; J1650; J1815-GY; J2920; J3490; J7030; J7050; J7620-GY; Q9967